=== PATIENT | female | born 1945 | race Two or more races ===

== ENCOUNTER 2023-11-18 09:21 | Inpatient (IN) | payer MEDICARE, OTHER ==
[~2023-11-18] VITALS: Ht 157.5 cm; Wt 82.2 kg
[2023-11-18 11:08] LABS: Urine Bacteria MOD /hpf (None Seen); Urine Blood Negative /uL (Negative); Urine Clarity Turbid (Clear); Urine Color Light-Yellow (Yellow); Urine Protein, UAD TRACE (Negative); Urine Specific Gravity 1.014 (1.001-1.035); Urine Urobilinogen Normal (Negative); Urine WBC 4 /hpf (0 - 5); Urine pH 5.5 (5.0-9.0)
[2023-11-18 11:29] LABS: Basophils # (auto) 0 10 ^3/uL (0-0.2); Basophils % (auto) 0.3 % (0.0-2.0); Eosinophils # (auto) 0.1 10 ^3/uL (0-0.8); Eosinophils % (auto) 1.3 % (0.0-7.0); Hematocrit 38.7 % (36.0-46.0); Hemoglobin 12.6 g/dL (12.2-16.2); Lymphocytes # (auto) 0.5 10 ^3/uL (0.4-5.4); Lymphocytes % (auto) 4.3 % (10.0-50.0); Mean Corpuscular Hemoglobin 31.5 pg (28.0-32.0); Mean Corpuscular Hgb Conc. 32.6 g/dL (32.0-36.0); Mean Corpuscular Volume 96.6 fL (80.0-100.0); Monocytes # (auto) 0.5 10 ^3/uL (0-1.3); Monocytes % (auto) 4.2 % (0.0-12.0); Neutrophils # (auto) 9.9 10 ^3/uL (1.6-8.6); Neutrophils % (auto) 89.9 % (37.0-80.0); Red Cell Distribution Width 14.8 % (11.8-14.3)
[2023-11-18 12:00] LABS: Alanine Aminotransferase 19 U/L (7-40); Albumin 4.3 g/dL (3.2-4.8); Alkaline Phosphatase 61 U/L (46-116); Anion Gap 6 (5-15); Aspartate Aminotransferase 21 U/L (13-40); BUN/Creatinine Ratio 14.9 (10.0-20.0); Blood Urea Nitrogen 18 mg/dL (9-23); Calcium 9.3 mg/dL (8.5-10.1); Carbon Dioxide 25 mmol/L (20-30); Chloride 110 mmol/L (98-107); Glucose 105 mg/dL (74-106); Potassium 3.7 mmol/L (3.5-5.1); Sodium 141 mmol/L (136-145)
[2023-11-18 12:01] LABS: Bilirubin, Total 0.6 mg/dL (0.2-1.0); Total Protein 6.9 g/dL (5.7-8.2)
[2023-11-18] MEDS: cefTRIAXone 1GM/50ML D5W 50 ML IV ONE (12:32)
[2023-11-18] MEDS: ONDANSETRON HCL 4 MG/2 ML VIAL IV PRN (13:12)
[2023-11-18] MEDS: ONDANSETRON HCL 4 MG/2 ML VIAL ONE (13:13)
[2023-11-18 14:45] VITALS: PULSE 77; RESP 12; O2SAT 97
[2023-11-18] MEDS ORDERED: DOCUSATE SOD 100 MG CAP PO PRN (15:30)
[2023-11-18] MEDS ORDERED: NITROGLYCERIN 0.4 MG SL TAB SL PRN (15:30)
[2023-11-18] MEDS ORDERED: MORPHINE SULFATE INJ 2 MG/ml SYRG IV PRN ×2 (15:30)
[2023-11-18] MEDS ORDERED: ONDANSETRON HCL 4 MG/2 ML VIAL IV PRN (15:30)
[2023-11-18] MEDS ORDERED: HYDROcodone-ACET 5/325MG TAB PO PRN (15:30)
[2023-11-18] MEDS ORDERED: ACETAMINOPHEN 325 MG TAB PO PRN (15:30)
[2023-11-18] MEDS ORDERED: cefTRIAXone 1GM/50ML D5W 50 ML IV ONE (15:45)
[2023-11-18] MEDS: metroNIDAZOLE 500MG/100ML 100 ML IV SCH (16:15)
[2023-11-18] MEDS: SODIUM CHLORIDE 0.9% 1,000 ML IV SCH (16:15)
[2023-11-18] MEDS: PANTOPRAZOLE 40 MG/10 ML VIAL INJ IV ONE (16:15)
[2023-11-18] MEDS ORDERED: BUME2TAB5 PO (19:08)
[2023-11-18] MEDS ORDERED: METO25TA93 PO (19:08)
[2023-11-18] MEDS ORDERED: LEVO100T8 PO (19:08)
[2023-11-18] MEDS ORDERED: METH2.5T62 PO (19:08)
[2023-11-18] MEDS ORDERED: METHOTREXATE 2.5 MG TAB PO SCH (19:15)
[2023-11-18] MEDS ORDERED: FOLI-119 PO (22:53)
[2023-11-18] MEDS ORDERED: CHOL20007 PO (22:53)
[2023-11-18] MEDS ORDERED: ALPR0.254 PO (22:53)
[2023-11-18] MEDS: metroNIDAZOLE 500 MG TAB PO SCH (23:09)
[2023-11-18 23:13] VITALS: BP 106/61; PULSE 85; RESP 16; TEMP 98.2; O2SAT 99
[2023-11-19] VITALS (8 sets, daily range): BP systolic 97–114; BP diastolic 51–64; PULSE 66–85; RESP 16–19; TEMP 97.5–98.3; O2SAT 91–96
[2023-11-19 07:13] LABS: Basophils # (auto) 0 10 ^3/uL (0-0.2); Basophils % (auto) 0.6 % (0.0-2.0); Eosinophils # (auto) 0.1 10 ^3/uL (0-0.8); Eosinophils % (auto) 1.5 % (0.0-7.0); Hematocrit 33.9 % (36.0-46.0); Hemoglobin 11.2 g/dL (12.2-16.2); Lymphocytes # (auto) 0.6 10 ^3/uL (0.4-5.4); Mean Corpuscular Hemoglobin 31.9 pg (28.0-32.0); Mean Corpuscular Hgb Conc. 33.1 g/dL (32.0-36.0); Mean Corpuscular Volume 96.4 fL (80.0-100.0); Monocytes # (auto) 0.5 10 ^3/uL (0-1.3); Monocytes % (auto) 9.1 % (0.0-12.0); Neutrophils # (auto) 4.1 10 ^3/uL (1.6-8.6); Neutrophils % (auto) 76.8 % (37.0-80.0); Nucleated Red Blood Cells % 0.1 %; Red Blood Cells 3.51 10^6/uL (4.0-5.20); Red Cell Distribution Width 15.1 % (11.8-14.3); White Blood Cell 5.3 10^3/uL (4.4-10.8)
[2023-11-19 07:39] LABS: Alanine Aminotransferase 14 U/L (7-40); Albumin 3.5 g/dL (3.2-4.8); Alkaline Phosphatase 49 U/L (46-116); Anion Gap 6 (5-15); Aspartate Aminotransferase 18 U/L (13-40); BUN/Creatinine Ratio 11.8 (10.0-20.0); Bilirubin, Total 0.4 mg/dL (0.2-1.0); Blood Urea Nitrogen 12 mg/dL (9-23); Calcium 8.1 mg/dL (8.5-10.1); Carbon Dioxide 24 mmol/L (20-30); Chloride 114 mmol/L (98-107); Glucose 93 mg/dL (74-106); Potassium 3.1 mmol/L (3.5-5.1); Sodium 144 mmol/L (136-145); Total Protein 5.5 g/dL (5.7-8.2)
[2023-11-19] MEDS: PANTOPRAZOLE 40 MG/10 ML VIAL INJ IV SCH (08:46)
[2023-11-19] MEDS: LEVOTHYROXINE SODIUM 100 MCG TAB PO SCH (08:46)
[2023-11-19] MEDS: cefTRIAXone 1GM/50ML D5W 50 ML IV SCH (08:47)
[2023-11-19] MEDS: BUMETANIDE 1 MG TAB PO SCH (10:00)
[2023-11-19] MEDS: METOPROLOL SUCCINATE XL 50 MG TAB PO SCH (10:05)
[2023-11-19] MEDS: POTASSIUM CHL 20 Meq TABLET PO ONE (11:22)
[2023-11-20] VITALS (7 sets, daily range): BP systolic 103–123; BP diastolic 56–65; PULSE 60–73; RESP 16–18; TEMP 36.4; O2SAT 92–98
[2023-11-20 06:50] LABS: Chloride 117 mmol/L (98-107); Potassium 3.6 mmol/L (3.5-5.1); Sodium 146 mmol/L (136-145)
[2023-11-20 06:51] LABS: Anion Gap 8 (5-15); Calcium 8.1 mg/dL (8.7-10.4); Carbon Dioxide 21 mmol/L (20-30)
[2023-11-20 06:56] LABS: BUN/Creatinine Ratio 8.8 (10.0-20.0); Basophils # (auto) 0 10 ^3/uL (0-0.2); Basophils % (auto) 0.5 % (0.0-2.0); Blood Urea Nitrogen 8 mg/dL (9-23); Eosinophils # (auto) 0.2 10 ^3/uL (0-0.8); Eosinophils % (auto) 3.4 % (0.0-7.0); Glucose 82 mg/dL (74-106); Hematocrit 33.2 % (36.0-46.0); Hemoglobin 10.8 g/dL (12.2-16.2); Lymphocytes # (auto) 1.1 10 ^3/uL (0.4-5.4); Lymphocytes % (auto) 20.7 % (10.0-50.0); Mean Corpuscular Hemoglobin 32.3 pg (28.0-32.0); Mean Corpuscular Hgb Conc. 32.4 g/dL (32.0-36.0); Mean Corpuscular Volume 99.7 fL (80.0-100.0); Monocytes # (auto) 0.7 10 ^3/uL (0-1.3); Monocytes % (auto) 11.9 % (0.0-12.0); Neutrophils # (auto) 3.5 10 ^3/uL (1.6-8.6); Neutrophils % (auto) 63.5 % (37.0-80.0); Red Blood Cells 3.33 10^6/uL (4.0-5.20); Red Cell Distribution Width 15.7 % (11.8-14.3); White Blood Cell 5.5 10^3/uL (4.4-10.8)
[2023-11-20] MEDS: metroNIDAZOLE 500 MG TAB PO ONE (11:00)
[2023-11-20] MEDS: CIPROFLOXACIN HCL 500 MG TAB PO ONE (11:00)
[2023-11-20] MEDS ORDERED: GADOTERATE MEG 10 MMOL/20ml INJ (0.5MMOL/ml) IV ONE (12:37)
[2023-11-20] MEDS: metroNIDAZOLE 500 MG TAB PO SCH (17:09)
[2023-11-20] MEDS ORDERED: CIP500T PO (17:24)
[2023-11-20] MEDS ORDERED: CIPROFLOXACIN HCL 500 MG TAB PO SCH (22:00)
== END 2023-11-20 18:35 | disposition home or self-care (01) | DRG 391 ==
LOC: ER 09:21 → OVERFLOW 15:27 → CENTRAL 21:57
PROVIDERS: ADMIT Internal Medicine; ATTEND Internal Medicine
DX: K52.9 Noninfective gastroenteritis and colitis, unspecified (principal); N17.0 Acute kidney failure with tubular necrosis; N39.0 Urinary tract infection, site not specified; E86.0 Dehydration; M06.9 Rheumatoid arthritis, unspecified; I10 Essential (primary) hypertension; E03.9 Hypothyroidism, unspecified; K44.9 Diaphragmatic hernia without obstruction or gangrene; N28.89 Other specified disorders of kidney and ureter; Z66 Do not resuscitate; N28.1 Cyst of kidney, acquired; Z90.49 Acquired absence of other specified parts of digestive tract
CPT/HCPCS: 36415; 74176; 74183; 76775; 80048; 80053; 81001; 82270; 85025; 85048; 87045; 87493; 93306; 96365; 96375; C9113; G0378; J2405; J3490

== ENCOUNTER 2024-08-27 11:47 | Inpatient (IN) | payer MEDICARE, OTHER ==
[~2024-08-27] VITALS: Ht 157.5 cm; Wt 94.1 kg
[~2024-08-27 11:47] MED LIST: ALPR0.254 PO; BUME2TAB5 PO; CHOL20007 PO; CIP500T PO; FOLI-119 PO; LEVO100T8 PO; METH2.5T62 PO; METO25TA93 PO
--- NOTE | 2024-08-27 12:16 | ED.PDOC ---
General HPI Comments Parttida HPI: Poor Historian. HPI: 79 year old female accompanied by daughter presents to the ED with chief complaint of suprapubic pain. Daughter reports that the patient had a bladder operation done by Dr. Christopher in [facility] 2 days ago. Daughter relays that the patient has been experiencing suprapubic pain since the surgery and even after she had followed up with Dr. Christopher yesterday, noting that he aid everything was normal at the time. Daughter states that the patient was prescribed Arnett and Cipro after her surgery and currently has vaginal packing in place. Patient notes that her pain feels like there is "air" in her suprapubic region. Patient denies any dysuria, hematuria, fever, chills, or N/V/D. Vitals: Temp: BP: HR: RR: spO2: Past Medical History: HTN, Arthritis, Hypothyroidism Past Surgical History: Cholecystectomy, Sling operation with vaginal packing in place after surgery. Social History: Denies cigarette, ETOH, or drug use. Allergies: NKDA REVIEW OF SYSTEMS: CONSTITUTIONAL: Denies acute: fever, diaphoresis, chills, HEAD: Denies acute: headache, photophobia Eyes: Denies acute: Double vision, vision loss, eye pain, eye discharge. EARS: Denies acute: tinnitus, hearing loss, ear discharge, ear pain, THROAT: Denies acute: sore throat, swelling, difficulty swallowing , pain with swallowing, change in voice. NECK: Denies acute: neck pain, neck swelling, stiff neck. HEART: Denies acute : chest pain, palpitations, LUNGS: Denies acute: SOB, wheezing, cough, hemoptysis ABDOMEN: Denies acute: Nausea, Vomiting, diarrhea, melena , hematemesis, hematochezia SKIN: Denies acute: rash, redness, lesions, itchiness. EXTREMITIES: Denies acute: calf pain, numbness, tingling, weakness, denies pain in extremity. Denies acute: Low back pain. Neuro: Denies acute: focal neurological deficit, motor or sensory focal neurological deficit, tremors, seizure like activity, confusion, dizziness, change in mental status, loss of bowel or bladder function, cauda equina like symptoms. : Denies acute: dysuria, hematuria, flank pain, increase in urinary frequency. PSYCH: Denies acute: hallucination, suicidal ideation, homicidal ideation. FEMALE: Denies acute: abnormal vaginal bleeding, foul odor, unusual discharge. PHYSICAL EXAM: General: no acute distress, awake and alert. Head: normocephalic, atraumatic. Neck: supple, trachea is midline, no swelling. Throat: Normal phonation. Eyes:, no erythema, no purulent discharge, no proptosis, no icterus. Heart: regular rate, regular rhythm, no significant murmur appreciated. Lungs: no apparent respiratory distress, Able to speak in full sentences. No wheezing, no rhonchi, no crackles. No stridors Clear to auscultation bilaterally. Abdomen: Suprapubic and lower abdominal tender to palpation, non distended, soft, no guarding, no rebound, + bowel sounds. Obese Neuro: Awake, Alert, oriented to name, self, situation, follows commands GCS=15. Speech is normal. Skin: no petechia, no purpura, no cyanosis, non-pale, not jaundice. Lower extremities: --1/4 bilateral- Pitting edema no deformity, no focal swelling, no calf TTP. Makes eye contact. moves all four extremities. Face: no apparent facial droop. ED COURSE: Chief Complaint: Abdominal Pain Time Seen by MD: 12:13 Primary Care Provider: HINOJOSA Reviewed notes: Nurses Notes, Medications, Allergies Allergies: Coded Allergies: NO KNOWN ALLERGIES (Unverified , 11/18/23) Home Meds Active Scripts Ciprofloxacin Hydrochloride (Ciprofloxacin HCl) 500 Mg Tab, 500 MG PO Q12HR for 5 Days, #10 TAB Prov:SANDHYAJUAN MANUELMARITZABARBARA RESIDENT 11/20/23 Reported Medications Cholecalciferol (VITAMIN D3) 2,000 Unit Tab, 1 TAB PO DAILY, #30 TAB 5 Refills 11/18/23 Alprazolam (Alprazolam) 0.25 Mg Tab, 1 TAB PO BID, #60 TAB 11/18/23 Folic Acid (Folic Acid) 1 Mg Tab, 100 MCG PO DAILY for 30 Days, MG 11/18/23 Bumetanide (Bumetanide) 2 Mg Tab, 1 TAB PO DAILY, #30 TAB 5 Refills 11/18/23 Levothyroxine Sodium (Levothyroxine Sodium) 100 Mcg Tab, 100 MCG PO DAILY, TAB 11/18/23 Methotrexate (Methotrexate Sodium) 2.5 Mg Tab, 2.5 MG PO QWEEKLY, TAB 11/18/23 Metoprolol Succinate (Metoprolol Succinate Er) 25 Mg Tab, 0.5 TAB PO DAILY, #30 TAB 5 Refills 11/18/23 Information Source: Patient, Relative (Daughter) Mode of Arrival: Wheelchair Was a procedure done? Was a procedure done?: No Differential Diagnosis Kidney stone (Female): N/A Urinary Problem (Female): Other (DDX include Diverticulitis, colitis, gastroenteritis, acute abdomen, SBO, enteritis, constipation, volvulus, appendicitis, Gallbladder disease, choledocolithiasis, ascending cholangitis, pancreatitis, intraAbdominal mass/neoplasm, hepatitis, UTI, pylonephritis, kidney stone, aneurysm, dissection, Inflammatory bowel disease, gastroparesis, ischemic bowel, ovarian torsion, ovarian cyst/mass, tubo-ovarian abscess, , ectopic , PID, STD.) X-Ray, Labs, Meds, VS Vital Signs Date Time Temp Pulse Resp B/P (MAP) Pulse Ox O2 Delivery O2 Flow Rate FiO2 08/27/24 14:14 98.1 105 16 127/79 (95) 97 98.1 08/27/24 13:17 140/58 08/27/24 13:15 96 Room Air* 0 21 08/27/24 13:03 98.0 99 17 140/58 (85) 96 98.0 08/27/24 13:03 99 17 96 Room Air 08/27/24 12:01 98.0 98 17 119/56 (77) 94 98.0 Lab Test 08/27/24 13:50 08/27/24 12:27 08/27/24 12:00 Range/Units Troponin I High Sensitivity 5 5 </=34 ng/L White Blood Count 14.6 H 4.4-10.8 10^3/uL Red Blood Count 3.11 L 4.0-5.20 10^6/uL Hemoglobin 9.8 L 12.2-16.2 g/dL Hematocrit 29.4 L 36.0-46.0 % Mean Corpuscular Volume 94.4 80.0-100.0 fL Mean Corpuscular Hemoglobin 31.7 28.0-32.0 pg Mean Corpuscular Hemoglobin Concent 33.5 32.0-36.0 g/dL Red Cell Distribution Width 15.3 H 11.8-14.3 % Platelet Count 229 140-450 10^3/uL Mean Platelet Volume 7.7 6.9-10.8 fL Neutrophils (%) (Auto) 85.7 H 37.0-80.0 % Lymphocytes (%) (Auto) 8.8 L 10.0-50.0 % Monocytes (%) (Auto) 4.0 0.0-12.0 % Eosinophils (%) (Auto) 1.1 0.0-7.0 % Basophils (%) (Auto) 0.4 0.0-2.0 % Neutrophils # (Auto) 12.5 H 1.6-8.6 10 ^3/uL Lymphocytes # (Auto) 1.3 0.4-5.4 10 ^3/uL Monocytes # (Auto) 0.6 0-1.3 10 ^3/uL Eosinophils # (Auto) 0.2 0-0.8 10 ^3/uL Basophils # (Auto) 0.1 0-0.2 10 ^3/uL Nucleated Red Blood Cells 0.0 % Sodium Level 140 136-145 mmol/L Potassium Level 4.0 3.5-5.1 mmol/L Chloride Level 107 98-107 mmol/L Carbon Dioxide Level 25 20-31 mmol/L Anion Gap 8 5-15 Blood Urea Nitrogen 30 H 9-23 mg/dL Creatinine 1.82 H 0.550-1.02 mg/dL Glomerular Filtration Rate Calc 28 >90 mL/min BUN/Creatinine Ratio 16.5 10.0-20.0 Serum Glucose 127 H 74-106 mg/dL Lactic Acid Level 1.1 0.4-2.0 mmol/L Calcium Level 9.3 8.7-10.4 mg/dL Total Bilirubin 0.6 0.2-1.0 mg/dL Aspartate Amino Transferase (AST) 18 13-40 U/L Alanine Aminotransferase (ALT) 20 7-40 U/L Alkaline Phosphatase 65 46-116 U/L B-Type Natriuretic Peptide 265.53 0-100 pg/mL Total Protein 6.2 5.7-8.2 g/dL Albumin 4.1 3.2-4.8 g/dL Lipase 43 12-53 U/L Urine Color Light-brown Yellow Urine Clarity Ex.turbid Clear Urine pH 5.5 5.0-9.0 Urine Specific [place] 1.012 1.001-1.035 Urine Protein 1+ H Negative Urine Ketones Negative Negative Urine Blood 3+ H Negative /uL Urine Nitrite 2+ H Negative Urine Bilirubin Negative Negative Urine Urobilinogen Normal Negative mg/dL Urine Leukocyte Esterase 3+ Negative /uL Urine RBC 411 0 - 4 /hpf Urine WBC Clumps Present None Seen /hpf Urine Microscopic WBC 1566 H 0-5 /HPF Urine Squamous Epithelial Cells Few <5 /hpf Urine Bacteria Few H None Seen /hpf Urine Creatinine Pending Urine Sodium Pending Urine Glucose Normal Normal mg/dL Current Medications Medications (Trade) Dose Ordered Sig/Sonia Route Start Time Stop Time Status Last Admin Sodium Chloride 500 ml @ 500 mls/hr Q1H ONCE IV 08/27/24 12:15 08/27/24 13:14 DC 08/27/24 13:05 Fentanyl Citrate 50 mcg ONCE ONCE IV 08/27/24 13:15 08/27/24 13:16 DC 08/27/24 13:17 Piperacillin Sod/ Tazobactam Sod 100 ml @ 100 mls/hr ONCE ONCE IV 08/27/24 13:30 08/27/24 14:29 DC 08/27/24 14:11 [place] [id number] Ph: [phone] DIAGNOSTIC IMAGING Diagnostic Imaging Report : [id number] Signed PATIENT: RACHEL MURPHYCCT: [id number] UNIT: [id number] : 1945 LOC: ER ROOM / BED: / AGE / SEX: 79 / F ADM STATUS: REG ER SERVICE 1229 ORDERING PHYSICIAN: JOSE LUIS EDWARDS DO PROCEDURE(s): ABPL - CT AB PEL WO CON-NO ORAL OR IV REASON: ABD PAIN ORDER NUMBER(s): [id number], ACCESSION NUMBER(s): [id number] Exam: CT CT AB PEL WO CON-NO ORAL OR IV History: ABD PAIN Comparison Study: CT CT AB PEL WO CON-NO ORAL OR IV on DOS: 11/18/23 TECHNIQUE: Multidetector CT of the abdomen and pelvis was performed from lung bases to pubic symphysis. Imaging was performed without IV contrast. Axial, coronal, and sagittal multiplanar reformats were obtained from the axial data set by the technologist. RADIATION DOSE: DLP 958.65 mGy.cm; CTDI vol 18.94 mGy. Findings: Lungs: The lung bases are clear. Heart: Cardiomegaly. No pericardial effusion. Liver: Unremarkable. Gallbladder: Cholecystectomy versus contracted gallbladder. Spleen: Unremarkable Pancreas: Unremarkable Adrenals: Unremarkable Kidneys: Mildly hyperdense lesions in the left kidney. GI tract: Small to moderate hiatal hernia. : Calcification versus urethral stent. Vasculature: Mild aortoiliac atherosclerosis. Lymphadenopathy: Absent Peritoneum: No ascites Musculoskeletal: Mild multilevel degenerative changes of the thoracolumbar spine. Grade 1 anterolisthesis of L4 on L5. Soft tissues: Unremarkable Impression: 1. No acute abdominopelvic abnormalities. 2. [id number] hiatal hernia. 3. Urethral calcification versus stent. 4. Cardiomegaly. ATED BY: KRISTINE MYERS DO DICTATED DATE/TIME: 08/27/24 1317 SIGNED BY: KRISTINE MYERS DO SIGNED DATE/TIME: 08/27/24 1317 CC: Time of 1ST Reevaluation: 13:13 Reevaluation 1ST: Unchanged Patient Education/Counseling: Diagnosis, Treatment Family Education/Counseling: Diagnosis, Treatment Comments Patient presented with the above HPI.---abdominal pain---workup was initiated. patient was found with the above mentioned diagnosis. the following medications were ordered: please refer to order lists of meds and tests obtained by myself Dr. Edwards. Patient ED course and VS have been stabilized. Patient has been reassessed in the ED and remained in a stable condition. Pertinent incidental findings were discussed with the patient and/or family. Patient/family voices understanding and is agreeable with plan. Patient has been observed in the ED adequate length of time to insure improvement/stability. Escalation of care considered: Consideration of escalation to observation or admission Patient was ADMITTED to the medicine team for further evaluation and treatment of their presentation. Patient has leukocytosis and UTI and on Arnett at home and requires pain management. Antibiotics initiated. All the reports of any imaging studies that were ordered by myself were reviewed by myself. Departure 1 Departure Time of Disposition: 13:56 Impression: Primary Impression: Postoperative pain Additional Impressions: Leukocytosis UTI (urinary tract infection) Acute renal insufficiency Disposition: ADMITTED INPATIENT Admit to: Tele Condition: Guarded Discharged With: Self Critical Care Note Critical Care Time?: No I personally scribed for JOSE LUIS EDWARDS DO ([email or web address]) on 08/27/24 at 12:16. Electronically submitted by Paul Cesar ([email or web address]). I personally scribed for JOSE LUIS EDWARDS DO ([email or web address]) on 08/27/24 at 13:26. Electronically submitted by Paul Cesar ([email or web address]). JOSE LUIS EDWARDS DO Aug 27, 2024 12:16
[2024-08-27 12:41] LABS: Basophils # (auto) 0.1 10 ^3/uL (0-0.2); Basophils % (auto) 0.4 % (0.0-2.0); Eosinophils # (auto) 0.2 10 ^3/uL (0-0.8); Eosinophils % (auto) 1.1 % (0.0-7.0); Hematocrit 29.4 % (36.0-46.0); Hemoglobin 9.8 g/dL (12.2-16.2); Lymphocytes # (auto) 1.3 10 ^3/uL (0.4-5.4); Lymphocytes % (auto) 8.8 % (10.0-50.0); Mean Corpuscular Hemoglobin 31.7 pg (28.0-32.0); Mean Corpuscular Hgb Conc. 33.5 g/dL (32.0-36.0); Mean Corpuscular Volume 94.4 fL (80.0-100.0); Monocytes # (auto) 0.6 10 ^3/uL (0-1.3); Neutrophils # (auto) 12.5 10 ^3/uL (1.6-8.6); Neutrophils % (auto) 85.7 % (37.0-80.0); Platelet Count (auto) 229 10^3/uL (140-450); Red Blood Cells 3.11 10^6/uL (4.0-5.20); Red Cell Distribution Width 15.3 % (11.8-14.3); White Blood Cell 14.6 10^3/uL (4.4-10.8)
[2024-08-27] MEDS: SODIUM CHLORIDE 0.9% 500 ML IV ONE (13:05)
[2024-08-27 13:06] LABS: Alanine Aminotransferase 20 U/L (7-40); Albumin 4.1 g/dL (3.2-4.8); Alkaline Phosphatase 65 U/L (46-116); Anion Gap 8 (5-15); Aspartate Aminotransferase 18 U/L (13-40); BUN/Creatinine Ratio 16.5 (10.0-20.0); Calcium 9.3 mg/dL (8.7-10.4); Carbon Dioxide 25 mmol/L (20-31); Chloride 107 mmol/L (98-107); Lipase 43 U/L (12-53); Sodium 140 mmol/L (136-145); Total Protein 6.2 g/dL (5.7-8.2)
[2024-08-27 13:07] LABS: Bilirubin, Total 0.6 mg/dL (0.2-1.0)
[2024-08-27 13:14] LABS: Blood Urea Nitrogen 30 mg/dL (9-23); Glucose 127 mg/dL (74-106)
[2024-08-27 13:15] VITALS: O2SAT 96
[2024-08-27] MEDS: fentaNYL CITRATE 100 MCG/2 ML VL IV ONE (13:17)
--- NOTE | 2024-08-27 13:19 | DVH ---
Exam: CT CT AB PEL WO CON-NO ORAL OR IV History: ABD PAIN Comparison Study: CT CT AB PEL WO CON-NO ORAL OR IV on DOS: 11/18/23 TECHNIQUE: Multidetector CT of the abdomen and pelvis was performed from lung bases to pubic symphysi s. Imaging was performed without IV contrast. Axial, coronal, and sagittal multiplanar reformats were obtained from the axial data set by the technologist. RADIATION DOSE: DLP 958.65 mGy.cm; CTDI vol 18.94 mGy. Findings: Lungs: The lung bases are clear. Heart: Cardiomegaly. No pericardial effusion. Liver: Unremarkable. Gallbladder: Cholecystectomy versus contracted gallbladder. Spleen: Unremarkable Pancreas: Unremarkable Adrenals: Unremarkable Kidneys: Mildly hyperdense lesions in the left kidney. GI tract: Small to moderate hiatal hernia. : Calcification versus urethral stent. Vasculature: Mild aortoiliac atherosclerosis. Lymphadenopathy: Absent Peritoneum: No ascites Musculoskeletal: Mild multilevel degenerative changes of the thoracolumbar spine. Grade 1 anterolisth esis of L4 on L5. Soft tissues: Unremarkable Impression: 1. No acute abdominopelvic abnormalities. 2. [id number] hiatal hernia. 3. Urethral calcification versus stent. 4. Cardiomegaly.
[2024-08-27 13:43] LABS: Urine Bacteria FEW /hpf (None Seen); Urine Blood 3+ /uL (Negative); Urine Clarity Ex.Turbid (Clear); Urine Color Light-Brown (Yellow); Urine Protein, UAD 1+ (Negative); Urine Specific Gravity 1.012 (1.001-1.035); Urine Squamous Epithelial Cell FEW /hpf (<5); Urine Urobilinogen Normal (Negative); Urine WBC 1566 /HPF (0-5); Urine WBC Clumps PRESENT /hpf (None Seen); Urine pH 5.5 (5.0-9.0)
[2024-08-27] MEDS: PIPERACILLIN-TAZOB 3.375GM 100 ML IV ONE (14:11)
--- NOTE | 2024-08-27 15:54 | DVHHP2 ---
Admitting Diagnosis: Suprapubic pain History of Present Illness HPI: 79 year old female accompanied by daughter presents to the ED with chief complaint of suprapubic pain. Daughter reports that the patient had a bladder operation done by Dr. Brower in [facility] 2 days ago. Daughter relays that the patient has been experiencing suprapubic pain since the surgery and even after she had followed up with Dr. Brower yesterday, noting that he aid everything was normal at the time. Daughter states that the patient was prescribed [place] and Cipro after her surgery and currently has vaginal packing in place. Patient notes that her pain feels like there is "air" in her suprapubic region. Patient denies any dysuria, hematuria, fever, chills, or N/V/D. Past Medical History: HTN, Arthritis, Hypothyroidism Past Surgical History: Cholecystectomy, Sling operation with vaginal packing in place after surgery. Social History: Denies cigarette, ETOH, or drug use. Allergies: NKDA REVIEW OF SYSTEMS: CONSTITUTIONAL: Denies acute: fever, diaphoresis, chills, HEAD: Denies acute: headache, photophobia Eyes: Denies acute: Double vision, vision loss, eye pain, eye discharge. EARS: Denies acute: tinnitus, hearing loss, ear discharge, ear pain, THROAT: Denies acute: sore throat, swelling, difficulty swallowing , pain with swallowing, change in voice. NECK: Denies acute: neck pain, neck swelling, stiff neck. HEART: Denies acute : chest pain, palpitations, LUNGS: Denies acute: SOB, wheezing, cough, hemoptysis ABDOMEN: Denies acute: Nausea, Vomiting, diarrhea, melena , hematemesis, hematochezia SKIN: Denies acute: rash, redness, lesions, itchiness. EXTREMITIES: Denies acute: calf pain, numbness, tingling, weakness, denies pain in extremity. Denies acute: Low back pain. Neuro: Denies acute: focal neurological deficit, motor or sensory focal neurological deficit, tremors, seizure like activity, confusion, dizziness, change in mental status, loss of bowel or bladder function, cauda equina like symptoms. : Denies acute: dysuria, hematuria, flank pain, increase in urinary frequency. PSYCH: Denies acute: hallucination, suicidal ideation, homicidal ideation. FEMALE: Denies acute: abnormal vaginal bleeding, foul odor, unusual discharge. Patient Family History: Diabetes mellitus G8 MOTHER G8 FATHER FH: thyroid disease High cholesterol G8 MOTHER G8 FATHER Hypertension G8 MOTHER G8 FATHER Allergies: Coded Allergies: NO KNOWN ALLERGIES (Unverified , 11/18/23) Home Meds Active Scripts Ciprofloxacin Hydrochloride (Ciprofloxacin HCl) 500 Mg Tab, 500 MG PO Q12HR for 5 Days, #10 TAB Prov:TYMARITZABARBARA RESIDENT 11/20/23 Reported Medications Cholecalciferol (VITAMIN D3) 2,000 Unit Tab, 1 TAB PO DAILY, #30 TAB 5 Refills 11/18/23 Alprazolam (Alprazolam) 0.25 Mg Tab, 1 TAB PO BID, #60 TAB 11/18/23 Folic Acid (Folic Acid) 1 Mg Tab, 100 MCG PO DAILY for 30 Days, MG 11/18/23 Bumetanide (Bumetanide) 2 Mg Tab, 1 TAB PO DAILY, #30 TAB 5 Refills 11/18/23 Levothyroxine Sodium (Levothyroxine Sodium) 100 Mcg Tab, 100 MCG PO DAILY, TAB 11/18/23 Methotrexate (Methotrexate Sodium) 2.5 Mg Tab, 2.5 MG PO QWEEKLY, TAB 11/18/23 Metoprolol Succinate (Metoprolol Succinate Er) 25 Mg Tab, 0.5 TAB PO DAILY, #30 TAB 5 Refills 11/18/23 Vital Signs Vital Signs Date Time Temp Pulse Resp B/P (MAP) Pulse Ox O2 Delivery O2 Flow Rate FiO2 08/27/24 14:14 98.1 105 16 127/79 (95) 97 98.1 08/27/24 13:15 Room Air* 0 21 Physical Exam Generally-79 years old woman, obese, sitting on chair. Mild distress HEENT-atraumatic normocephalic Heart-regular rate and rhythm Lungs clear to auscultate bilaterally Abdomen soft, tender suprapubic, nondistended Musculoskeletal-no edema cyanosis Neuro-AO x3, no focal deficits Results Labs Test 08/27/24 13:50 08/27/24 12:27 08/27/24 12:00 Range/Units Troponin I High Sensitivity 5 </=34 ng/L White Blood Count 14.6 H 4.4-10.8 10^3/uL Red Blood Count 3.11 L 4.0-5.20 10^6/uL Hemoglobin 9.8 L 12.2-16.2 g/dL Hematocrit 29.4 L 36.0-46.0 % Mean Corpuscular Volume 94.4 80.0-100.0 fL Mean Corpuscular Hemoglobin 31.7 28.0-32.0 pg Mean Corpuscular Hemoglobin Concent 33.5 32.0-36.0 g/dL Red Cell Distribution Width 15.3 H 11.8-14.3 % Platelet Count 229 140-450 10^3/uL Mean Platelet Volume 7.7 6.9-10.8 fL Neutrophils (%) (Auto) 85.7 H 37.0-80.0 % Lymphocytes (%) (Auto) 8.8 L 10.0-50.0 % Monocytes (%) (Auto) 4.0 0.0-12.0 % Eosinophils (%) (Auto) 1.1 0.0-7.0 % Basophils (%) (Auto) 0.4 0.0-2.0 % Neutrophils # (Auto) 12.5 H 1.6-8.6 10 ^3/uL Lymphocytes # (Auto) 1.3 0.4-5.4 10 ^3/uL Monocytes # (Auto) 0.6 0-1.3 10 ^3/uL Eosinophils # (Auto) 0.2 0-0.8 10 ^3/uL Basophils # (Auto) 0.1 0-0.2 10 ^3/uL Nucleated Red Blood Cells 0.0 % Sodium Level 140 136-145 mmol/L Potassium Level 4.0 3.5-5.1 mmol/L Chloride Level 107 98-107 mmol/L Carbon Dioxide Level 25 20-31 mmol/L Anion Gap 8 5-15 Blood Urea Nitrogen 30 H 9-23 mg/dL Creatinine 1.82 H 0.550-1.02 mg/dL Glomerular Filtration Rate Calc 28 >90 mL/min BUN/Creatinine Ratio 16.5 10.0-20.0 Serum Glucose 127 H 74-106 mg/dL Lactic Acid Level 1.1 0.4-2.0 mmol/L Calcium Level 9.3 8.7-10.4 mg/dL Total Bilirubin 0.6 0.2-1.0 mg/dL Aspartate Amino Transferase (AST) 18 13-40 U/L Alanine Aminotransferase (ALT) 20 7-40 U/L Alkaline Phosphatase 65 46-116 U/L B-Type Natriuretic Peptide 265.53 0-100 pg/mL Total Protein 6.2 5.7-8.2 g/dL Albumin 4.1 3.2-4.8 g/dL Lipase 43 12-53 U/L Urine Color Light-brown Yellow Urine Clarity Ex.turbid Clear Urine pH 5.5 5.0-9.0 Urine Specific [place] 1.012 1.001-1.035 Urine Protein 1+ H Negative Urine Ketones Negative Negative Urine Blood 3+ H Negative /uL Urine Nitrite 2+ H Negative Urine Bilirubin Negative Negative Urine Urobilinogen Normal Negative mg/dL Urine Leukocyte Esterase 3+ Negative /uL Urine RBC 411 0 - 4 /hpf Urine WBC Clumps Present None Seen /hpf Urine Microscopic WBC 1566 H 0-5 /HPF Urine Squamous Epithelial Cells Few <5 /hpf Urine Bacteria Few H None Seen /hpf Urine Glucose Normal Normal mg/dL Primary Diagnosis Acute urinary tract infection Postoperative pain RADHA on CKD versus CKD Plan CT abdomen and pelvis shows urethral calcification versus then no acute infection Positive UA Start ceftriaxone 1 g daily. Follow with the urine culture. Adjust antibiotic according to the ID and sensitivity Pain control Antiemetic Bowel regimen Urology consult for postoperative pain. Patient had a recent sling Nephrology consult for RADHA versus CKD Urine sodium, urine creatinine Full code Heparin for DVT prophylaxis GI prophylaxis Renal diet Plan discussed with: Patient Problems List: (1) Acute kidney injury superimposed on CKD (2) Postoperative pain Status: Acute (3) UTI (urinary tract infection) Status: Acute (4) Leukocytosis Status: Acute (5) Acute abdominal pain Status: Acute Date of Service: Aug 27, 2024 Billing Provider: AJ BROWER MD Common Visit Codes: [id number] INP/OBS CARE (HIGH) AJ BROWER MD Aug 27, 2024 15:54
[2024-08-27] MEDS ORDERED: METHOTREXATE 2.5 MG TAB PO SCH (16:15)
[2024-08-27] MEDS ORDERED: ACETAMINOPHEN 325 MG TAB PO PRN (18:00)
[2024-08-27] MEDS ORDERED: DOCUSATE SOD 100 MG CAP PO PRN (18:00)
[2024-08-27] MEDS ORDERED: HYDROmorphone HCL 2 MG/ML VL/or syr IV PRN (18:00)
[2024-08-27] MEDS: ONDANSETRON HCL 4 MG/2 ML VIAL IV PRN (20:41)
[2024-08-27] MEDS: cefTRIAXone 1GM/50ML D5W 50 ML IV SCH (20:41)
[2024-08-27] MEDS: MORPHINE SULFATE INJ 2 MG/ml SYRG IV PRN (20:41)
[2024-08-27 20:56] VITALS: RESP 22; O2SAT 96
[2024-08-27] MEDS: SODIUM CHLOR 0.9% PF (SALINE LOCK) 10ML VIAL/SYR IV SCH (22:00)
[2024-08-27] MEDS: ALPRAZolam 0.25 MG TAB PO SCH (22:00)
[2024-08-27 22:25] VITALS: BP 134/67; PULSE 105; RESP 18; TEMP 99; O2SAT 98
[2024-08-27 22:27] VITALS: O2SAT 95
[2024-08-27 22:30] VITALS: BP 134/67; PULSE 105; RESP 18; TEMP 99; O2SAT 96
[2024-08-27] MEDS: LACTATED RINGER'S 1,000 ML IV ONE (22:54)
[2024-08-28 01:00] VITALS: BP 123/62; PULSE 95; RESP 18; TEMP 98.3; O2SAT 95
[2024-08-28] MEDS: HYDROcodone-ACET 5/325MG TAB PO PRN (05:14)
[2024-08-28 05:25] VITALS: BP 121/63; PULSE 89; RESP 18; TEMP 98; O2SAT 98
[2024-08-28] MEDS: LEVOTHYROXINE SODIUM 100 MCG TAB PO SCH (06:43)
[2024-08-28 07:10] LABS: Eosinophils # (auto) 0.1 10 ^3/uL (0-0.8); Hemoglobin 8.4 g/dL (12.2-16.2); Monocytes # (auto) 0.7 10 ^3/uL (0-1.3); Neutrophils # (auto) 11.3 10 ^3/uL (1.6-8.6); Neutrophils % (auto) 85.7 % (37.0-80.0); Red Blood Cells 2.62 10^6/uL (4.0-5.20); White Blood Cell 13.2 10^3/uL (4.4-10.8)
[2024-08-28 07:13] LABS: Basophils # (auto) 0.1 10 ^3/uL (0-0.2); Basophils % (auto) 0.4 % (0.0-2.0); Eosinophils % (auto) 0.6 % (0.0-7.0); Hematocrit 24.6 % (36.0-46.0); Lymphocytes % (auto) 7.9 % (10.0-50.0); Mean Corpuscular Hemoglobin 31.9 pg (28.0-32.0); Mean Corpuscular Volume 93.9 fL (80.0-100.0); Monocytes % (auto) 5.4 % (0.0-12.0); Platelet Count (auto) 195 10^3/uL (140-450); Red Cell Distribution Width 15.4 % (11.8-14.3)
[2024-08-28 07:20] LABS: Alanine Aminotransferase 18 U/L (7-40); Alkaline Phosphatase 64 U/L (46-116); Anion Gap 8 (5-15); Aspartate Aminotransferase 19 U/L (13-40); BUN/Creatinine Ratio 11.2 (10.0-20.0); Bilirubin, Total 0.5 mg/dL (0.2-1.0); Carbon Dioxide 24 mmol/L (20-31); Chloride 106 mmol/L (98-107); Potassium 4.5 mmol/L (3.5-5.1); Sodium 138 mmol/L (136-145)
[2024-08-28 07:23] LABS: Blood Urea Nitrogen 33 mg/dL (9-23); Calcium 8.7 mg/dL (8.7-10.4); Glucose 109 mg/dL (74-106); Total Protein 5.5 g/dL (5.7-8.2)
[2024-08-28 07:24] LABS: Albumin 3.5 g/dL (3.2-4.8)
[2024-08-28 09:00] VITALS: BP 109/49; PULSE 73; RESP 20; TEMP 99.1; O2SAT 96
[2024-08-28] MEDS: BUMETANIDE 1 MG TAB PO SCH (09:41)
[2024-08-28] MEDS: METOPROLOL SUCCINATE XL 50 MG TAB PO SCH (09:41)
[2024-08-28] MEDS: CHOLECALCIFEROL (VITD3) 1,000UNIT=25mCg TAB PO SCH (09:42)
--- NOTE | 2024-08-28 11:10 | DVHINCON2 ---
Date of service: Aug 28, [address] Christopher Reason for Consultation Acute kidney injury History of Present Illness Mrs. Robert is a 79-year-old female with presentation hospital for suprapubic discomfort. Patient's daughter was at the bedside and provided most of the history. She underwent urologic procedure several days prior to current evaluation. Denies recent fevers or chills as outpatient. Denies gross hematuria. Serum creatinine is up trending at that is the reason for this consultation. Past Medical History Hypertension Arthritis Hypothyroidism Past Surgical History Cholecystectomy Recent bladder sling procedure Allergies: Coded Allergies: NO KNOWN ALLERGIES (Unverified , 11/18/23) Home Meds Active Scripts Ciprofloxacin Hydrochloride (Ciprofloxacin HCl) 500 Mg Tab, 500 MG PO Q12HR for 5 Days, #10 TAB Prov:BARBARA BUSTOS RESIDENT 11/20/23 Reported Medications Cholecalciferol (VITAMIN D3) 2,000 Unit Tab, 1 TAB PO DAILY, #30 TAB 5 Refills 11/18/23 Folic Acid (Folic Acid) 1 Mg Tab, 100 MCG PO DAILY for 30 Days, MG 11/18/23 Bumetanide (Bumetanide) 2 Mg Tab, 1 TAB PO DAILY, #30 TAB 5 Refills 11/18/23 Levothyroxine Sodium (Levothyroxine Sodium) 100 Mcg Tab, 100 MCG PO DAILY, TAB 11/18/23 Methotrexate (Methotrexate Sodium) 2.5 Mg Tab, 2.5 MG PO QWEEKLY, TAB 11/18/23 Metoprolol Succinate (Metoprolol Succinate Er) 25 Mg Tab, 0.5 TAB PO DAILY, #30 TAB 5 Refills 11/18/23 Discontinued Reported Medications Alprazolam (Alprazolam) 0.25 Mg Tab, 1 TAB PO BID, #60 TAB 11/18/23 Current Medications Current Medications Medications (Trade) Dose Ordered Sig/Sonia Route PRN Reason Start Time Stop Time Status Last Admin Ceftriaxone Sodium 50 ml @ 100 mls/hr DAILY IV 08/27/24 16:15 08/28/24 09:40 Alprazolam (Xanax Tablet) 0.25 mg BID PO 08/27/24 22:00 Levothyroxine Sodium (Synthroid Tablet) 100 mcg DAILY@0600 PO 08/28/24 06:00 08/28/24 06:43 Methotrexate (Methotrexate) 2.5 mg QWEEKLY PO 08/27/24 16:15 Bumetanide (Bumex Tablet) 2 mg DAILY PO 08/28/24 10:00 08/28/24 09:41 Cholecalciferol (Vitamin D3 Tablet) 2,000 unit DAILY PO 08/28/24 10:00 08/28/24 09:42 Patient Own Medication 100 mcg DAILY PO 08/28/24 10:00 Metoprolol Succinate (Toprol Xl) 25 mg DAILY PO 08/28/24 10:00 08/28/24 09:41 Sodium Chloride (Saline Lock Ns) 10 ml Q8HR IV 08/27/24 22:00 08/28/24 06:44 Docusate Sodium (Colace Capsule) 100 mg BIDPRN PRN PO FOR CONSTIPATION 08/27/24 18:00 Acetaminophen (Tylenol Tablet) 650 mg Q6HP PRN PO PAIN SCALE 1-3 OR TEMP>100.4 08/27/24 18:00 Acetaminophen/ Hydrocodone Bitart ([place] 5/325MG Tab) 1 tab Q4HP PRN PO MODERATE PAIN (4-6 PAIN SCALE) 08/27/24 18:00 08/28/24 09:43 Hydromorphone HCl (Dilaudid Injection) 0.5 mg Q4HP PRN IV SEVERE PAIN (7-10 PAIN SCALE) 08/27/24 18:00 08/27/24 20:11 DC Ondansetron HCl (Zofran) 4 mg Q4HP PRN IV NAUSEA / VOMITING 08/27/24 18:00 08/27/24 20:41 Morphine Sulfate 2 mg Q4HPRN PRN IV SEVERE PAIN (7-10 PAIN SCALE) 08/27/24 20:15 08/27/24 20:41 Family History: Diabetes mellitus G8 MOTHER G8 FATHER FH: thyroid disease High cholesterol G8 MOTHER G8 FATHER Hypertension G8 MOTHER G8 FATHER Review of Systems Limited as as per history of present illness otherwise all systems reviewed and are noncontributory H&P Exam Vital Signs/I&O Vital Sign Date Time Temp Pulse Resp B/P (MAP) Pulse Ox O2 Delivery O2 Flow Rate FiO2 08/28/24 09:41 73 109/49 08/28/24 09:00 99.1 20 96 99.1 08/28/24 08:00 Room Air* 0 21 Intake and Output0 08/27/24 08/28/24 19:00 07:00 Intake Total 600 ml 350 ml Output Total 200 ml Balance 600 ml 150 ml Intake Oral 300 ml IV Total 600 ml 50 ml Output Urine Total 200 ml Physical Exam Gen: nad, elderly heent: nc/at, mmm lungs: cta anteriorly cvs: no rub abd: Mild Tenderness in the suprapubic region ext: no edema skin: no rash neuro: alert and oriented Labs/Diagnostic Data Labs/Diagnostic Data Laboratory Tests Test 08/28/24 06:35 08/27/24 13:50 08/27/24 12:27 08/27/24 12:00 Range/Units White Blood Count 13.2 H 14.6 H 4.4-10.8 10^3/uL Red Blood Count 2.62 L 3.11 L 4.0-5.20 10^6/uL Hemoglobin 8.4 L 9.8 L 12.2-16.2 g/dL Hematocrit 24.6 #L 29.4 L 36.0-46.0 % Mean Corpuscular Volume 93.9 94.4 80.0-100.0 fL Mean Corpuscular Hemoglobin 31.9 31.7 28.0-32.0 pg Mean Corpuscular Hemoglobin Concent 34.0 33.5 32.0-36.0 g/dL Red Cell Distribution Width 15.4 H 15.3 H 11.8-14.3 % Platelet Count 195 229 140-450 10^3/uL Mean Platelet Volume 7.7 7.7 6.9-10.8 fL Neutrophils (%) (Auto) 85.7 H 85.7 H 37.0-80.0 % Lymphocytes (%) (Auto) 7.9 L 8.8 L 10.0-50.0 % Monocytes (%) (Auto) 5.4 4.0 0.0-12.0 % Eosinophils (%) (Auto) 0.6 1.1 0.0-7.0 % Basophils (%) (Auto) 0.4 0.4 0.0-2.0 % Neutrophils # (Auto) 11.3 H 12.5 H 1.6-8.6 10 ^3/uL Lymphocytes # (Auto) 1.0 1.3 0.4-5.4 10 ^3/uL Monocytes # (Auto) 0.7 0.6 0-1.3 10 ^3/uL Eosinophils # (Auto) 0.1 0.2 0-0.8 10 ^3/uL Basophils # (Auto) 0.1 0.1 0-0.2 10 ^3/uL Nucleated Red Blood Cells 0.0 0.0 % Sodium Level 138 140 136-145 mmol/L Potassium Level 4.5 4.0 3.5-5.1 mmol/L Chloride Level 106 107 98-107 mmol/L Carbon Dioxide Level 24 25 20-31 mmol/L Anion Gap 8 8 5-15 Blood Urea Nitrogen 33 H 30 H 9-23 mg/dL Creatinine 2.94 #H 1.82 H 0.550-1.02 mg/dL Glomerular Filtration Rate Calc 16 28 >90 mL/min BUN/Creatinine Ratio 11.2 16.5 10.0-20.0 Serum Glucose 109 H 127 H 74-106 mg/dL Calcium Level 8.7 9.3 8.7-10.4 mg/dL Total Bilirubin 0.5 0.6 0.2-1.0 mg/dL Aspartate Amino Transferase (AST) 19 18 13-40 U/L Alanine Aminotransferase (ALT) 18 20 7-40 U/L Alkaline Phosphatase 64 65 46-116 U/L Total Protein 5.5 L 6.2 5.7-8.2 g/dL Albumin 3.5 4.1 3.2-4.8 g/dL Troponin I High Sensitivity 5 5 </=34 ng/L Lactic Acid Level 1.1 0.4-2.0 mmol/L B-Type Natriuretic Peptide 265.53 0-100 pg/mL Lipase 43 12-53 U/L Urine Color Light-brown Yellow Urine Clarity Ex.turbid Clear Urine pH 5.5 5.0-9.0 Urine Specific [place] 1.012 1.001-1.035 Urine Protein 1+ H Negative Urine Ketones Negative Negative Urine Blood 3+ H Negative /uL Urine Nitrite 2+ H Negative Urine Bilirubin Negative Negative Urine Urobilinogen Normal Negative mg/dL Urine Leukocyte Esterase 3+ Negative /uL Urine RBC 411 0 - 4 /hpf Urine WBC Clumps Present None Seen /hpf Urine Microscopic WBC 1566 H 0-5 /HPF Urine Squamous Epithelial Cells Few <5 /hpf Urine Bacteria Few H None Seen /hpf Urine Glucose Normal Normal mg/dL Assessment IMP: 1) Hemodynamically mediated RADHA/VMN 2) CKD stage IIIb - baseline creatinine to this specifications writer 3) s/p bladder sling procedure 4) urinary tract infection REC: - IV fluid hydration - we will check urine sodium, serial chemistry panels - urology evaluation/ follow-up - we will continue to follow closely with you. - discussed plan of care from Nephrology perspective of patient's daughter. Thank you for the consultation. Plan discussed with: Daughter SANDRO MAS MD Aug 28, 2024 11:10
[2024-08-28] MEDS: SODIUM CHLORIDE 0.9% 1,000 ML IV ONE (11:15)
--- NOTE | 2024-08-28 11:50 | DVHINCON2 ---
Date of service: Aug 28, 2024 Referring Physician Hospitalist Reason for Consultation post op pain History of Present Illness History Source: Patient, RN Notes, MD Notes, Old Records Exam Limitations: No limitations HPI 79 yo female known to urology for stress incontinence. She had urethral bulking 03/2024 and midurethral sling 08/25/24. Vaginal packing was removed and pt was straight cathed with 675 mls output. Home Meds Active Scripts Ciprofloxacin Hydrochloride (Ciprofloxacin HCl) 500 Mg Tab, 500 MG PO Q12HR for 5 Days, #10 TAB Prov:BARBARA BUSTOS RESIDENT 11/20/23 Reported Medications Cholecalciferol (VITAMIN D3) 2,000 Unit Tab, 1 TAB PO DAILY, #30 TAB 5 Refills 11/18/23 Folic Acid (Folic Acid) 1 Mg Tab, 100 MCG PO DAILY for 30 Days, MG 11/18/23 Bumetanide (Bumetanide) 2 Mg Tab, 1 TAB PO DAILY, #30 TAB 5 Refills 11/18/23 Levothyroxine Sodium (Levothyroxine Sodium) 100 Mcg Tab, 100 MCG PO DAILY, TAB 11/18/23 Methotrexate (Methotrexate Sodium) 2.5 Mg Tab, 2.5 MG PO QWEEKLY, TAB 11/18/23 Metoprolol Succinate (Metoprolol Succinate Er) 25 Mg Tab, 0.5 TAB PO DAILY, #30 TAB 5 Refills 11/18/23 Discontinued Reported Medications Alprazolam (Alprazolam) 0.25 Mg Tab, 1 TAB PO BID, #60 TAB 11/18/23 Past Medical History Patient Family History: Diabetes mellitus G8 MOTHER G8 FATHER FH: thyroid disease High cholesterol G8 MOTHER G8 FATHER Hypertension G8 MOTHER G8 FATHER Smoker: No Hx (Negative) Alocohol: None Drugs: None Domestic Violence: Neg Review of Systems Gastrointestinal: Abdominal Pain Genitourinary: Retention H&P Exam Vital Signs Vital Signs Date Time Temp Pulse Resp B/P (MAP) Pulse Ox O2 Delivery O2 Flow Rate FiO2 08/28/24 09:41 73 109/49 08/28/24 09:00 99.1 20 96 99.1 08/28/24 08:00 Room Air* 0 21 General Appeara: Well developed, Well nourished, Normal Appearance Pulmonary/Respiratory: Normal inspection, Normal breath sounds, Chest non- tender, Lungs clear Cardiovascular/Chest: Normal inspection, Regular rate, Normal Rhythm Neuro/Mental St: Alert, Oriented Appearance: Appropriate appearance, Appropriate insight Eye contact/ Speech: Cooperative, Good eye contact, Normal speech Skin Exam: Normal inspection, Normal color, Warm/dry Labs/Xrays [facility] [id number] [place] [id number] Ph: [phone] DIAGNOSTIC IMAGING Diagnostic Imaging Report : [id number] Signed PATIENT: RACHEL MURPHYT: [id number] UNIT: [id number] : 1945 LOC: ER ROOM / BED: / AGE / SEX: 79 / F ADM STATUS: REG ER SERVICE 1229 ORDERING PHYSICIAN: JOSE LUIS EDWARDS DO PROCEDURE(s): ABPL - CT AB PEL WO CON-NO ORAL OR IV REASON: ABD PAIN ORDER NUMBER(s): [id number], ACCESSION NUMBER(s): [id number] Exam: CT CT AB PEL WO CON-NO ORAL OR IV History: ABD PAIN Comparison Study: CT CT AB PEL WO CON-NO ORAL OR IV on DOS: 11/18/23 TECHNIQUE: Multidetector CT of the abdomen and pelvis was performed from lung bases to pubic symphysis. Imaging was performed without IV contrast. Axial, coronal, and sagittal multiplanar reformats were obtained from the axial data set by the technologist. RADIATION DOSE: DLP 958.65 mGy.cm; CTDI vol 18.94 mGy. Findings: Lungs: The lung bases are clear. Heart: Cardiomegaly. No pericardial effusion. Liver: Unremarkable. Gallbladder: Cholecystectomy versus contracted gallbladder. Spleen: Unremarkable Pancreas: Unremarkable Adrenals: Unremarkable Kidneys: Mildly hyperdense lesions in the left kidney. GI tract: Small to moderate hiatal hernia. : Calcification versus urethral stent. Vasculature: Mild aortoiliac atherosclerosis. Lymphadenopathy: Absent Peritoneum: No ascites Musculoskeletal: Mild multilevel degenerative changes of the thoracolumbar spine. Grade 1 anterolisthesis of L4 on L5. Soft tissues: Unremarkable Impression: 1. No acute abdominopelvic abnormalities. 2. [id number] hiatal hernia. 3. Urethral calcification versus stent. 4. Cardiomegaly. ATED BY: KRISTINE MYERS DO DICTATED DATE/TIME: 08/27/241316 SIGNED BY: KRISTINE MYERS DO SIGNED DATE/TIME: 08/27/241316 CC: Labs Test 08/28/24 06:35 08/27/24 13:50 08/27/24 12:27 08/27/24 12:00 Range/Units White Blood Count 13.2 H 4.4-10.8 10^3/uL Red Blood Count 2.62 L 4.0-5.20 10^6/uL Hemoglobin 8.4 L 12.2-16.2 g/dL Hematocrit 24.6 #L 36.0-46.0 % Mean Corpuscular Volume 93.9 80.0-100.0 fL Mean Corpuscular Hemoglobin 31.9 28.0-32.0 pg Mean Corpuscular Hemoglobin Concent 34.0 32.0-36.0 g/dL Red Cell Distribution Width 15.4 H 11.8-14.3 % Platelet Count 195 140-450 10^3/uL Mean Platelet Volume 7.7 6.9-10.8 fL Neutrophils (%) (Auto) 85.7 H 37.0-80.0 % Lymphocytes (%) (Auto) 7.9 L 10.0-50.0 % Monocytes (%) (Auto) 5.4 0.0-12.0 % Eosinophils (%) (Auto) 0.6 0.0-7.0 % Basophils (%) (Auto) 0.4 0.0-2.0 % Neutrophils # (Auto) 11.3 H 1.6-8.6 10 ^3/uL Lymphocytes # (Auto) 1.0 0.4-5.4 10 ^3/uL Monocytes # (Auto) 0.7 0-1.3 10 ^3/uL Eosinophils # (Auto) 0.1 0-0.8 10 ^3/uL Basophils # (Auto) 0.1 0-0.2 10 ^3/uL Nucleated Red Blood Cells 0.0 % Sodium Level 138 136-145 mmol/L Potassium Level 4.5 3.5-5.1 mmol/L Chloride Level 106 98-107 mmol/L Carbon Dioxide Level 24 20-31 mmol/L Anion Gap 8 5-15 Blood Urea Nitrogen 33 H 9-23 mg/dL Creatinine 2.94 #H 0.550-1.02 mg/dL Glomerular Filtration Rate Calc 16 >90 mL/min BUN/Creatinine Ratio 11.2 10.0-20.0 Serum Glucose 109 H 74-106 mg/dL Calcium Level 8.7 8.7-10.4 mg/dL Total Bilirubin 0.5 0.2-1.0 mg/dL Aspartate Amino Transferase (AST) 19 13-40 U/L Alanine Aminotransferase (ALT) 18 7-40 U/L Alkaline Phosphatase 64 46-116 U/L Total Protein 5.5 L 5.7-8.2 g/dL Albumin 3.5 3.2-4.8 g/dL Troponin I High Sensitivity 5 </=34 ng/L Lactic Acid Level 1.1 0.4-2.0 mmol/L B-Type Natriuretic Peptide 265.53 0-100 pg/mL Lipase 43 12-53 U/L Urine Color Light-brown Yellow Urine Clarity Ex.turbid Clear Urine pH 5.5 5.0-9.0 Urine Specific [place] 1.012 1.001-1.035 Urine Protein 1+ H Negative Urine Ketones Negative Negative Urine Blood 3+ H Negative /uL Urine Nitrite 2+ H Negative Urine Bilirubin Negative Negative Urine Urobilinogen Normal Negative mg/dL Urine Leukocyte Esterase 3+ Negative /uL Urine RBC 411 0 - 4 /hpf Urine WBC Clumps Present None Seen /hpf Urine Microscopic WBC 1566 H 0-5 /HPF Urine Squamous Epithelial Cells Few <5 /hpf Urine Bacteria Few H None Seen /hpf Urine Glucose Normal Normal mg/dL Assessment/Plan Problem List: (1) Retention of urine (2) Hydronephrosis (3) RADHA (acute kidney injury) (4) Postoperative pain Plan d/c with batista pain meds prn monitor renal function encourage ambulation f/u with Dr. Christopher on for voiding trial Plan discussed with: Patient, Other SHERIF LONDON NP Aug 28, 2024 11:50
--- NOTE | 2024-08-28 12:42 | DVHPN2 ---
Reviewed: Care Plan, H&P, Labs, Medications, Previous Orders, Radiology Changes from previous H/P or p: No Changes Objective Vitals Vital Signs Date Time Temp Pulse Resp B/P (MAP) Pulse Ox O2 Delivery O2 Flow Rate FiO2 08/28/24 09:41 73 109/49 08/28/24 09:00 99.1 20 96 99.1 08/28/24 08:00 Room Air* 0 21 Intake/Output Intake and Output 08/28/24 07:00 Intake Total 950 ml Output Total 200 ml Balance 750 ml Intake Oral 300 ml IV Total 650 ml Output Urine Total 200 ml Medications Current Medications Medications Dose Ordered Sig/Sonia Route Start Time Stop Time Status Last Admin Dose Admin Ceftriaxone Sodium 50 ml @ 100 mls/hr DAILY IV 08/27/24 16:15 08/28/24 09:40 100 MLS/HR Alprazolam 0.25 mg BID PO 08/27/24 22:00 Levothyroxine Sodium 100 mcg DAILY@0600 PO 08/28/24 06:00 08/28/24 06:43 100 MCG Methotrexate 2.5 mg QWEEKLY PO 08/27/24 16:15 Bumetanide 2 mg DAILY PO 08/28/24 10:00 08/28/24 09:41 2 MG Cholecalciferol 2,000 unit DAILY PO 08/28/24 10:00 08/28/24 09:42 2,000 UNIT Patient Own Medication 100 mcg DAILY PO 08/28/24 10:00 Metoprolol Succinate 25 mg DAILY PO 08/28/24 10:00 08/28/24 09:41 25 MG Sodium Chloride 10 ml Q8HR IV 08/27/24 22:00 08/28/24 06:44 10 ML Docusate Sodium 100 mg BIDPRN PRN PO 08/27/24 18:00 Acetaminophen 650 mg Q6HP PRN PO 08/27/24 18:00 Acetaminophen/ Hydrocodone Bitart 1 tab Q4HP PRN PO 08/27/24 18:00 08/28/24 09:43 1 TAB Ondansetron HCl 4 mg Q4HP PRN IV 08/27/24 18:00 08/27/24 20:41 4 MG Morphine Sulfate 2 mg Q4HPRN PRN IV 08/27/24 20:15 08/27/24 20:41 2 MG Laboratory Results Laboratory Tests 08/28/24 06:35 Chemistry Test 08/28/24 06:35 Albumin 3.5 g/dL (3.2-4.8) Calcium Level 8.7 mg/dL (8.7-10.4) Total Protein 5.5 g/dL (5.7-8.2) L LFT Test 08/28/24 06:35 Alanine Aminotransferase (ALT) 18 U/L (7-40) Alkaline Phosphatase 64 U/L (46-116) Aspartate Amino Transferase (AST) 19 U/L (13-40) Total Bilirubin 0.5 mg/dL (0.2-1.0) Urinalysis Test 08/27/24 12:00 Urine Color Light-brown (Yellow) Urine Clarity Ex.turbid (Clear) Urine pH 5.5 (5.0-9.0) Urine Specific [place] 1.012 (1.001-1.035) Urine Protein 1+ (Negative) H Urine Ketones Negative (Negative) Urine Blood 3+ /uL (Negative) H Urine Nitrite 2+ (Negative) H Urine Bilirubin Negative (Negative) Urine Urobilinogen Normal mg/dL (Negative) Urine Leukocyte Esterase 3+ /uL (Negative) Urine RBC 411 /hpf (0 - 4) Urine WBC Clumps Present /hpf (None Seen) Urine Microscopic WBC 1566 /HPF (0-5) H Urine Squamous Epithelial Cells Few /hpf (<5) Urine Bacteria Few /hpf (None Seen) H Urine Creatinine Pending Urine Sodium Pending Urine Glucose Normal mg/dL (Normal) Labs and/or images reviewed: Labs reviewed by me, Image(s) reviewed by me Assessment/Plan Assessment/Plan Acute postop urinary retention: Urology consult appreciated Sepsis secondary to urinary tract infection: Blood cultures urine cultures Rocephin Sling operation by Urology Dr. Christopher two days back Hypotension Hypothyroidism Arthritis Acute kidney injury: Nephrology consult appreciated Daughter at the bedside Plan discussed with: Patient Date of Service: Aug 28, 2024 Billing Provider: ERMA BARRETT MD Common Visit Codes: 97761-[id number] INP/OBS CARE(HIGH) ERMA BARRETT MD Aug 28, 2024 12:42
[2024-08-28 13:00] VITALS: BP 96/54; PULSE 73; RESP 18; TEMP 98.2; O2SAT 99
[2024-08-28 17:00] VITALS: BP 99/45; PULSE 74; RESP 14; TEMP 98.1; O2SAT 99
[2024-08-28 21:00] VITALS: BP 107/48; PULSE 81; RESP 18; TEMP 98; O2SAT 100
[2024-08-29] VITALS (7 sets, daily range): BP systolic 90–107; BP diastolic 41–49; PULSE 58–72; RESP 16–18; TEMP 98–98.3; O2SAT 97–99
[2024-08-29 06:28] LABS: Basophils # (auto) 0 10 ^3/uL (0-0.2); Basophils % (auto) 0.2 % (0.0-2.0); Eosinophils # (auto) 0.4 10 ^3/uL (0-0.8); Eosinophils % (auto) 3.6 % (0.0-7.0); Hematocrit 23.3 % (36.0-46.0); Hemoglobin 8.1 g/dL (12.2-16.2); Lymphocytes # (auto) 1.1 10 ^3/uL (0.4-5.4); Lymphocytes % (auto) 10.9 % (10.0-50.0); Mean Corpuscular Hemoglobin 32.7 pg (28.0-32.0); Mean Corpuscular Hgb Conc. 34.7 g/dL (32.0-36.0); Mean Corpuscular Volume 94.1 fL (80.0-100.0); Monocytes # (auto) 0.6 10 ^3/uL (0-1.3); Monocytes % (auto) 5.9 % (0.0-12.0); Neutrophils % (auto) 79.4 % (37.0-80.0); Platelet Count (auto) 178 10^3/uL (140-450); Red Blood Cells 2.48 10^6/uL (4.0-5.20); Red Cell Distribution Width 15.3 % (11.8-14.3); White Blood Cell 10.1 10^3/uL (4.4-10.8)
[2024-08-29 06:40] LABS: Alanine Aminotransferase 16 U/L (7-40); Albumin 3.3 g/dL (3.2-4.8); Alkaline Phosphatase 67 U/L (46-116); Anion Gap 10 (5-15); Aspartate Aminotransferase 18 U/L (13-40); BUN/Creatinine Ratio 11.3 (10.0-20.0); Carbon Dioxide 23 mmol/L (20-31); Glucose 95 mg/dL (74-106); Potassium 3.5 mmol/L (3.5-5.1); Sodium 142 mmol/L (136-145)
[2024-08-29 06:41] LABS: Bilirubin, Total 0.3 mg/dL (0.2-1.0)
[2024-08-29 06:42] LABS: Blood Urea Nitrogen 29 mg/dL (9-23); Chloride 109 mmol/L (98-107); Total Protein 5.4 g/dL (5.7-8.2)
[2024-08-29] MEDS: SODIUM CHLORIDE 0.9% 500 ML IV ONE (06:53)
--- NOTE | 2024-08-29 10:36 | DVHPNRES ---
Progress Note Date Seen: Aug 29, 2024 Resident Creating Document: ERIKA SEXTON RESIDENT Medical Necessity Reason Pt with a Central, PICC or Fol: Yes The following are medically ne: Batista Catheter Reason for batista catheter: Strict I&O Subjective Patient reports: No new complaints Review of Systems: HEENT:Normal, CVS:Normal, RESPIRATORY:Normal, GI:Abnormal (pain abdomen adn back pain), :Abnormal (foleys), MSK:Normal, NEURO:Normal Objective vital signs Vital Sign Date Time Temp Pulse Resp B/P (MAP) Pulse Ox O2 Delivery O2 Flow Rate FiO2 08/29/24 10:19 62 91/42 08/29/24 08:00 16 97 Room Air* 0 21 08/29/24 05:00 98.3 98.3 Total Intake and Output 08/28/24 08/28/24 08/29/24 15:00 23:00 07:00 Intake Total 230 ml 1440 ml 350 ml Output Total 300 ml 2450 ml Balance 230 ml 1140 ml -2100 ml medications Current Medications Medications Dose Ordered Sig/Sonia Route Start Time Stop Time Status Last Admin Dose Admin Ceftriaxone Sodium 50 ml @ 100 mls/hr DAILY IV 08/27/24 16:15 08/29/24 10:12 100 MLS/HR Alprazolam 0.25 mg BID PO 08/27/24 22:00 Levothyroxine Sodium 100 mcg DAILY@0600 PO 08/28/24 06:00 08/29/24 05:50 100 MCG Methotrexate 2.5 mg QWEEKLY PO 08/27/24 16:15 Bumetanide 2 mg DAILY PO 08/28/24 10:00 08/29/24 10:13 2 MG Cholecalciferol 2,000 unit DAILY PO 08/28/24 10:00 08/29/24 10:13 2,000 UNIT Patient Own Medication 100 mcg DAILY PO 08/28/24 10:00 Metoprolol Succinate 25 mg DAILY PO 08/28/24 10:00 08/29/24 10:19 25 MG Sodium Chloride 10 ml Q8HR IV 08/27/24 22:00 08/29/24 05:50 10 ML Docusate Sodium 100 mg BIDPRN PRN PO 08/27/24 18:00 Acetaminophen 650 mg Q6HP PRN PO 08/27/24 18:00 Acetaminophen/ Hydrocodone Bitart 1 tab Q4HP PRN PO 08/27/24 18:00 08/29/24 05:27 1 TAB Ondansetron HCl 4 mg Q4HP PRN IV 08/27/24 18:00 08/27/24 20:41 4 MG Morphine Sulfate 2 mg Q4HPRN PRN IV 08/27/24 20:15 08/27/24 20:41 2 MG Examination: GENERAL:Normal, HEENT:Normal, NECK:Normal, LUNGS:Normal, CVS:Normal, ABDOMEN:Abnormal (pain continues, suprapubic, ), MSK:Normal, NEURO:Normal, :Abnormal (on foleys, U/O color and output satisfactory. ) laboratory and microbiology Laboratory Tests 08/29/24 04:41 Test 08/29/24 04:41 Range/Units Serum Glucose 95 74-106 mg/dL Microbiology Date/Time Source Procedure Growth Status 08/27/24 23:15 Nose MRSA Screen - Final Complete 08/27/24 17:08 Blood Blood Culture - Preliminary NO GROWTH AFTER 24 HOURS OF INCUBATION. Resulted 08/27/24 12:00 Voided Urine Urine Culture - Preliminary Resulted Labs and/or images reviewed: Labs reviewed by me, Image(s) reviewed by me Problem List/Assessment/Plan Problem List/Assessment/Plan Mrs. Robert, a 79-year-old , exclusively [place]ian speaking female with a history of hypertension, arthritis, and hypothyroidism, cholecystectomy, sling operation with vaginal packing on 08/26 presented with suprapubic discomfort, urinary retention, following a recent urologic procedure as post operative pain. Her daughter provided most of the history, noting no recent fevers, chills, or gross hematuria. The consultation was requested due to uptrending serum creatinine levels, indicating acute kidney injury. She denies any use of cigarettes, alcohol, or drugs and has no known drug allergies. Assessment: # Acute postop urinary retention s/p foleys catheter placement on 08/28 # Hemodynamically mediated RADHA/VMN vs postrenal obstruction to rule out. # Baseline CKD stage IIIb likely # s/p bladder sling procedure by Dr. Christopher (Urology) # Sepsis secondary to urinary tract infection # urinary tract infection, likely gram -ve, cultures pending on Ceftriaxone iv. # Hiatal hernia Findings: #HnH and pletlets stable. Final cultures pending. #HDS, leukocytosis improved, afebrile, mild hypotensive. euvolemic #Cr. 1.82> 2.94>2.57 (baseline 0.91 ...11/20/23) #BUN:33>29 #urinalysis UTI on ceftriaxone, +ve nitritie, blood. Bcx and mrsa -ve #CT abdomen shows, Urethral calcification versus stent. #24 hour I/O: [id number]= (-730) Plan: #US Renal with bladder pending. #Urine cr, sodium, and glucose pending. #Continue antibiotics, #Rest of the treatment as per primary team, and urology. Will continue Batista catheter at discharge with Urology outpatient follow up 09/[address] Christopher for voiding trial. Thank you for the opportunity to follow up on your patient. In case of any question feel free to reach out to the Nephrology team. Discussed with Nephrology attending Dr. Avendaño. Addendum Patient seen and examined, plan discussed with resident. Agree with above, we will follow closely Patient is status post Batista catheter urinary retention DC Bumex NS IV as ordered for 1 L today Discussed with son-in-law bedside Plan discussed with: Patient, Other (primary team, RN) ERIKA SEXTON RESIDENT Aug 29, 2024 10:36 BIBIANA AVENDAÑO MD Aug 29, 2024 15:57
--- NOTE | 2024-08-29 12:45 | DVHPN2 ---
Reviewed: Care Plan, H&P, Labs, Medications, Previous Orders, Radiology Changes from previous H/P or p: No Changes Objective Vitals Vital Signs Date Time Temp Pulse Resp B/P (MAP) Pulse Ox O2 Delivery O2 Flow Rate FiO2 08/29/24 10:19 62 91/42 08/29/24 09:00 98.2 16 97 98.2 08/29/24 08:00 Room Air* 0 21 Intake/Output Intake and Output 08/29/24 07:00 Intake Total 2020 ml Output Total 2750 ml Balance -730 ml Intake Oral 970 ml IV Total 1050 ml Output Urine Total 2750 ml # Voids 1 Medications Current Medications Medications Dose Ordered Sig/Sonia Route Start Time Stop Time Status Last Admin Dose Admin Ceftriaxone Sodium 50 ml @ 100 mls/hr DAILY IV 08/27/24 16:15 08/29/24 10:12 100 MLS/HR Alprazolam 0.25 mg BID PO 08/27/24 22:00 Levothyroxine Sodium 100 mcg DAILY@0600 PO 08/28/24 06:00 08/29/24 05:50 100 MCG Methotrexate 2.5 mg QWEEKLY PO 08/27/24 16:15 Bumetanide 2 mg DAILY PO 08/28/24 10:00 08/29/24 10:13 2 MG Cholecalciferol 2,000 unit DAILY PO 08/28/24 10:00 08/29/24 10:13 2,000 UNIT Patient Own Medication 100 mcg DAILY PO 08/28/24 10:00 Metoprolol Succinate 25 mg DAILY PO 08/28/24 10:00 08/29/24 10:19 25 MG Sodium Chloride 10 ml Q8HR IV 08/27/24 22:00 08/29/24 05:50 10 ML Docusate Sodium 100 mg BIDPRN PRN PO 08/27/24 18:00 Acetaminophen 650 mg Q6HP PRN PO 08/27/24 18:00 Acetaminophen/ Hydrocodone Bitart 1 tab Q4HP PRN PO 08/27/24 18:00 08/29/24 05:27 1 TAB Ondansetron HCl 4 mg Q4HP PRN IV 08/27/24 18:00 08/27/24 20:41 4 MG Morphine Sulfate 2 mg Q4HPRN PRN IV 08/27/24 20:15 08/27/24 20:41 2 MG Laboratory Results Laboratory Tests 08/29/24 04:41 Chemistry Test 08/29/24 04:41 Albumin 3.3 g/dL (3.2-4.8) Calcium Level 9.0 mg/dL (8.7-10.4) Total Protein 5.4 g/dL (5.7-8.2) L LFT Test 08/29/24 04:41 Alanine Aminotransferase (ALT) 16 U/L (7-40) Alkaline Phosphatase 67 U/L (46-116) Aspartate Amino Transferase (AST) 18 U/L (13-40) Total Bilirubin 0.3 mg/dL (0.2-1.0) Urinalysis Test 08/27/24 12:00 Urine Color Light-brown (Yellow) Urine Clarity Ex.turbid (Clear) Urine pH 5.5 (5.0-9.0) Urine Specific [place] 1.012 (1.001-1.035) Urine Protein 1+ (Negative) H Urine Ketones Negative (Negative) Urine Blood 3+ /uL (Negative) H Urine Nitrite 2+ (Negative) H Urine Bilirubin Negative (Negative) Urine Urobilinogen Normal mg/dL (Negative) Urine Leukocyte Esterase 3+ /uL (Negative) Urine RBC 411 /hpf (0 - 4) Urine WBC Clumps Present /hpf (None Seen) Urine Microscopic WBC 1566 /HPF (0-5) H Urine Squamous Epithelial Cells Few /hpf (<5) Urine Bacteria Few /hpf (None Seen) H Urine Creatinine Pending Urine Sodium Pending Urine Glucose Normal mg/dL (Normal) Microbiology Microbiology Date/Time Source Procedure Growth Status 08/27/24 23:15 Nose MRSA Screen - Final Complete 08/27/24 17:08 Blood Blood Culture - Preliminary NO GROWTH AFTER 24 HOURS OF INCUBATION. Resulted 08/27/24 12:00 Voided Urine Urine Culture - Preliminary Resulted Labs and/or images reviewed: Labs reviewed by me, Image(s) reviewed by me Assessment/Plan Assessment/Plan Acute postop urinary retention: Urology consult appreciated Sepsis secondary to urinary tract infection: Blood cultures negative, urine cultures mixed, continue Rocephin Sling operation by Urology Dr. Christopher two days back Hypotension Hypothyroidism Arthritis Acute kidney injury: Nephrology consult appreciated Daughter at the bedside Urology cleared for discharge Final urine cultures still pending, son-in-law at bedside and does not want patient to be discharged until final urine culture result Plan discussed with: Patient Date of Service: Aug 29, 2024 Billing Provider: ERMA BARRETT MD Common Visit Codes: [id number] INP/OBS CARE(HIGH) ERMA BARRETT MD Aug 29, 2024 12:45
--- NOTE | 2024-08-29 14:19 | DVH ---
INDICATION: RADHA with obstruction TECHNIQUE: Multiple real-time sonographic images of the kidneys and bladder were obtained. COMPARISON: US KIDNEY on DOS: 11/18/23 FINDINGS: RIGHT kidney measures 10.5 cm in length. Mild hydronephrosis. LEFT kidney measures 9.9 cm in length. Left renal cysts are present measuring up to 2.9 cm in the low er pole. No hydronephrosis. Greene catheter in the urinary bladder. IMPRESSION: Mild right hydronephrosis.
[2024-08-29] MEDS: SODIUM CHLORIDE 0.9% 1,000 ML IV ONE (18:12)
[2024-08-29] MEDS: FOLIC ACID 1 MG TAB PO ONE (20:04)
[2024-08-30 05:00] VITALS: BP 101/57; PULSE 63; RESP 17; TEMP 97.9; O2SAT 94
[2024-08-30 06:35] LABS: Alanine Aminotransferase 21 U/L (7-40); Alkaline Phosphatase 72 U/L (46-116); Anion Gap 9 (5-15); Aspartate Aminotransferase 19 U/L (13-40); BUN/Creatinine Ratio 10.8 (10.0-20.0); Blood Urea Nitrogen 20 mg/dL (9-23); Carbon Dioxide 26 mmol/L (20-31); Glucose 88 mg/dL (74-106); Sodium 144 mmol/L (136-145)
[2024-08-30 06:36] LABS: Albumin 3.3 g/dL (3.2-4.8)
[2024-08-30 06:39] LABS: Bilirubin, Total 0.3 mg/dL (0.2-1.0); Calcium 8.5 mg/dL (8.7-10.4); Chloride 109 mmol/L (98-107); Potassium 3.3 mmol/L (3.5-5.1); Total Protein 5.4 g/dL (5.7-8.2)
[2024-08-30 07:58] LABS: Basophils # (auto) 0 10 ^3/uL (0-0.2); Basophils % (auto) 0.4 % (0.0-2.0); Eosinophils # (auto) 0.4 10 ^3/uL (0-0.8); Mean Corpuscular Volume 94.9 fL (80.0-100.0); Monocytes # (auto) 0.6 10 ^3/uL (0-1.3)
[2024-08-30 08:01] LABS: Eosinophils % (auto) 5.3 % (0.0-7.0); Hemoglobin 7.8 g/dL (12.2-16.2); Lymphocytes % (auto) 13.3 % (10.0-50.0); Mean Corpuscular Hemoglobin 32.3 pg (28.0-32.0); Monocytes % (auto) 7.6 % (0.0-12.0); Neutrophils # (auto) 5.7 10 ^3/uL (1.6-8.6); Neutrophils % (auto) 73.4 % (37.0-80.0); Platelet Count (auto) 181 10^3/uL (140-450); Red Blood Cells 2.43 10^6/uL (4.0-5.20); Red Cell Distribution Width 15.2 % (11.8-14.3); White Blood Cell 7.8 10^3/uL (4.4-10.8)
[2024-08-30 08:10] VITALS: PULSE 68; RESP 16; O2SAT 97
[2024-08-30 09:00] VITALS: BP 99/47; PULSE 68; RESP 16; TEMP 98; O2SAT 97
[2024-08-30] MEDS: FOLIC ACID 1 MG TAB PO SCH (09:33)
[2024-08-30] MEDS ORDERED: CIPR-173 PO (11:35)
--- NOTE | 2024-08-30 11:37 | DVHPN2 ---
Reviewed: Care Plan, H&P, Labs, Medications, Previous Orders, Radiology Changes from previous H/P or p: No Changes Objective Vitals Vital Signs Date Time Temp Pulse Resp B/P (MAP) Pulse Ox O2 Delivery O2 Flow Rate FiO2 08/30/24 09:33 68 99/47 08/30/24 09:00 98.0 16 97 98.0 08/30/24 08:10 Room Air* 0 21 Intake/Output Intake and Output 08/30/24 07:00 Intake Total 1650 ml Output Total 3950 ml Balance -2300 ml Intake Oral 950 ml IV Total 700 ml Output Urine Total 3950 ml Medications Current Medications Medications Dose Ordered Sig/Sonia Route Start Time Stop Time Status Last Admin Dose Admin Ceftriaxone Sodium 50 ml @ 100 mls/hr DAILY IV 08/27/24 16:15 08/30/24 09:32 100 MLS/HR Alprazolam 0.25 mg BID PO 08/27/24 22:00 Levothyroxine Sodium 100 mcg DAILY@0600 PO 08/28/24 06:00 08/30/24 05:26 100 MCG Methotrexate 2.5 mg QWEEKLY PO 08/27/24 16:15 Cholecalciferol 2,000 unit DAILY PO 08/28/24 10:00 08/30/24 09:33 2,000 UNIT Metoprolol Succinate 25 mg DAILY PO 08/28/24 10:00 08/30/24 09:33 25 MG Sodium Chloride 10 ml Q8HR IV 08/27/24 22:00 08/30/24 05:26 10 ML Docusate Sodium 100 mg BIDPRN PRN PO 08/27/24 18:00 Acetaminophen 650 mg Q6HP PRN PO 08/27/24 18:00 Acetaminophen/ Hydrocodone Bitart 1 tab Q4HP PRN PO 08/27/24 18:00 08/30/24 06:23 1 TAB Ondansetron HCl 4 mg Q4HP PRN IV 08/27/24 18:00 08/27/24 20:41 4 MG Morphine Sulfate 2 mg Q4HPRN PRN IV 08/27/24 20:15 08/27/24 20:41 2 MG Folic Acid 1 mg DAILY PO 08/30/24 10:00 08/30/24 09:33 1 MG Laboratory Results Laboratory Tests 08/30/24 04:16 08/30/24 07:39 Chemistry Test 08/30/24 04:16 Albumin 3.3 g/dL (3.2-4.8) Calcium Level 8.5 mg/dL (8.7-10.4) L Total Protein 5.4 g/dL (5.7-8.2) L LFT Test 08/30/24 04:16 Alanine Aminotransferase (ALT) 21 U/L (7-40) Alkaline Phosphatase 72 U/L (46-116) Aspartate Amino Transferase (AST) 19 U/L (13-40) Total Bilirubin 0.3 mg/dL (0.2-1.0) Urinalysis Test 08/27/24 12:00 Urine Color Light-brown (Yellow) Urine Clarity Ex.turbid (Clear) Urine pH 5.5 (5.0-9.0) Urine Specific [place] 1.012 (1.001-1.035) Urine Protein 1+ (Negative) H Urine Ketones Negative (Negative) Urine Blood 3+ /uL (Negative) H Urine Nitrite 2+ (Negative) H Urine Bilirubin Negative (Negative) Urine Urobilinogen Normal mg/dL (Negative) Urine Leukocyte Esterase 3+ /uL (Negative) Urine RBC 411 /hpf (0 - 4) Urine WBC Clumps Present /hpf (None Seen) Urine Microscopic WBC 1566 /HPF (0-5) H Urine Squamous Epithelial Cells Few /hpf (<5) Urine Bacteria Few /hpf (None Seen) H Urine Glucose Normal mg/dL (Normal) Microbiology Microbiology Date/Time Source Procedure Growth Status 08/27/24 23:15 Nose MRSA Screen - Final Complete 08/27/24 17:08 Blood Blood Culture - Preliminary NO GROWTH AFTER 48 HOURS OF INCUBATION. Resulted 08/27/24 12:00 Voided Urine Urine Culture - Final Complete Labs and/or images reviewed: Labs reviewed by me, Image(s) reviewed by me Assessment/Plan Assessment/Plan Acute postop urinary retention: Urology consult appreciated Sepsis secondary to urinary tract infection: Blood cultures negative, urine cultures mixed, continue Rocephin Sling operation by Urology Dr. Christopher two days back Hypotension Hypothyroidism Arthritis Acute kidney injury: Nephrology consult appreciated Urine Cultures contaminated Patient feels better afebrile stable vital signs will discharged home on Cipro Urology cleared for discharge Plan discussed with: Patient Date of Service: Aug 30, 2024 Billing Provider: ERMA BARRETT MD Common Visit Codes: [id number] INP/OBS CARE(HIGH) ERMA BARRETT MD Aug 30, 2024 11:37
--- NOTE | 2024-08-30 11:42 | DVHDS2 ---
Discharge Summary Date of Admission Aug 27, 2024 at 17:49 Date of Discharge: Aug 30, 2024 Admitting Diagnosis Urinary retention Wounds: None Labs/Diagnostic Data: Laboratory Results Test 08/30/24 07:39 08/30/24 04:16 08/27/24 13:50 08/27/24 12:27 White Blood Count 7.8 10^3/uL (4.4-10.8) Red Blood Count 2.43 10^6/uL (4.0-5.20) Hemoglobin 7.8 g/dL (12.2-16.2) Hematocrit 23.0 % (36.0-46.0) Mean Corpuscular Volume 94.9 fL (80.0-100.0) Mean Corpuscular Hemoglobin 32.3 pg (28.0-32.0) Mean Corpuscular Hemoglobin Concent 34.0 g/dL (32.0-36.0) Red Cell Distribution Width 15.2 % (11.8-14.3) Platelet Count 181 10^3/uL (140-450) Mean Platelet Volume 7.6 fL (6.9-10.8) Neutrophils (%) (Auto) 73.4 % (37.0-80.0) Lymphocytes (%) (Auto) 13.3 % (10.0-50.0) Monocytes (%) (Auto) 7.6 % (0.0-12.0) Eosinophils (%) (Auto) 5.3 % (0.0-7.0) Basophils (%) (Auto) 0.4 % (0.0-2.0) Neutrophils # (Auto) 5.7 10 ^3/uL (1.6-8.6) Lymphocytes # (Auto) 1.0 10 ^3/uL (0.4-5.4) Monocytes # (Auto) 0.6 10 ^3/uL (0-1.3) Eosinophils # (Auto) 0.4 10 ^3/uL (0-0.8) Basophils # (Auto) 0 10 ^3/uL (0-0.2) Nucleated Red Blood Cells 0.0 % Sodium Level 144 mmol/L (136-145) Potassium Level 3.3 mmol/L (3.5-5.1) Chloride Level 109 mmol/L (98-107) Carbon Dioxide Level 26 mmol/L (20-31) Anion Gap 9 (5-15) Blood Urea Nitrogen 20 mg/dL (9-23) Creatinine 1.86 mg/dL (0.550-1.02) Glomerular Filtration Rate Calc 27 mL/min (>90) BUN/Creatinine Ratio 10.8 (10.0-20.0) Serum Glucose 88 mg/dL (74-106) Calcium Level 8.5 mg/dL (8.7-10.4) Total Bilirubin 0.3 mg/dL (0.2-1.0) Aspartate Amino Transferase (AST) 19 U/L (13-40) Alanine Aminotransferase (ALT) 21 U/L (7-40) Alkaline Phosphatase 72 U/L (46-116) Total Protein 5.4 g/dL (5.7-8.2) Albumin 3.3 g/dL (3.2-4.8) Troponin I High Sensitivity 5 ng/L (</=34) Lactic Acid Level 1.1 mmol/L (0.4-2.0) B-Type Natriuretic Peptide 265.53 pg/mL (0-100) Lipase 43 U/L (12-53) Test 08/27/24 12:00 Urine Color Light-brown (Yellow) Urine Clarity Ex.turbid (Clear) Urine pH 5.5 (5.0-9.0) Urine Specific [place] 1.012 (1.001-1.035) Urine Protein 1+ (Negative) Urine Ketones Negative (Negative) Urine Blood 3+ /uL (Negative) Urine Nitrite 2+ (Negative) Urine Bilirubin Negative (Negative) Urine Urobilinogen Normal mg/dL (Negative) Urine Leukocyte Esterase 3+ /uL (Negative) Urine RBC 411 /hpf (0 - 4) Urine WBC Clumps Present /hpf (None Seen) Urine Microscopic WBC 1566 /HPF (0-5) Urine Squamous Epithelial Cells Few /hpf (<5) Urine Bacteria Few /hpf (None Seen) Urine Glucose Normal mg/dL (Normal) Other Laboratory Tests 08/30/24 07:39 08/30/24 04:16 Brief Hx & Hospital Course: 79-year-old female with a history of hypertension hypothyroidism arthritis had sling operation for cystocele by Urology Dr. Christopher subsequently developed urinary retention two days afterwards and got admitted to the hospital. The patient had Greene inserted. Vaginal pack was removed. Blood cultures negative urine cultures were mixed patient treated with Rocephin. patient feels better afebrile stable vital signs and alert discharged home on Cipro for UTI Greene with leg bag she will follow up with Dr Christopher in 10 days Consults/Reason for consult Dr. Christopher Operations or Procedures None Condition at Discharge: Fair Final Diagnosis/Problems List Acute postop urinary retention: Urology consult appreciated Sepsis secondary to urinary tract infection: Blood cultures negative, urine cultures mixed, continue Rocephin Sling operation by Urology Dr. Christopher two days back Hypotension Hypothyroidism Arthritis Acute kidney injury: Nephrology consult appreciated Discharge Disposition: Home Discharge Instruct/Medications Diet: Regular Activity: Light activity Follow Up/Referral: Follow up with Urology Dr. Christopher in 10 days Medications: Cipro Transmitted to pharmacy 39 (Time taken for discharge summary 39 minutes) Discharge Statement: "Patient was advised to return to the ER or call 911 if any headaches, dizziness, shortness of breath, chest pain, abdominal pain, bleeding, fevers, or worsening of medical condition. Patient was counseled about treatment plan, medications, possible side effects, patientverbalized understanding. All questions were answered to the best of my ability. This discharge took greater then 30 minutes in planning, reviewing documentation, counseling the patient, and discussing with other team members." ASSESSMENT ASSESSMENT Hospital Course Uneventful Assessment Acute postop urinary retention: Urology consult appreciated Sepsis secondary to urinary tract infection: Blood cultures negative, urine cultures mixed, continue Rocephin Sling operation by Urology Dr. Christopher two days back Hypotension Hypothyroidism Arthritis Acute kidney injury: Nephrology consult appreciated Date of Service: Aug 30, 2024 Billing Provider: ERMA BARRETT MD Common Visit Codes: [id number] DISCH DAY >30min ERMA BARRETT MD Aug 30, 2024 11:42
[2024-08-30 13:00] VITALS: BP 103/47; PULSE 63; RESP 16; TEMP 98.6; O2SAT 92
[2024-08-30 13:02] VITALS: BP 103/47; PULSE 68; RESP 16; TEMP 36.7; O2SAT 92
--- NOTE | 2024-08-30 14:47 | DVHPNRES ---
Progress Note Date Seen: Aug 30, 2024 Resident Creating Document: ERIKA SEXTON RESIDENT Medical Necessity Reason Pt with a Central, PICC or Fol: Yes The following are medically ne: Batista Catheter Reason for batista catheter: Strict I&O Subjective Patient reports: Feels better Objective vital signs Vital Sign Date Time Temp Pulse Resp B/P (MAP) Pulse Ox O2 Delivery O2 Flow Rate FiO2 08/30/24 13:02 36.7 68 16 92 08/30/24 09:33 99/47 08/30/24 08:10 Room Air* 0 21 Total Intake and Output 08/29/24 08/29/24 08/30/24 15:00 23:00 07:00 Intake Total 500 ml 950 ml 200 ml Output Total 2550 ml 1400 ml Balance 500 ml -1600 ml -1200 ml medications Current Medications Medications Dose Ordered Sig/Sonia Route Start Time Stop Time Status Last Admin Dose Admin Ceftriaxone Sodium 50 ml @ 100 mls/hr DAILY IV 08/27/24 16:15 08/30/24 09:32 100 MLS/HR Alprazolam 0.25 mg BID PO 08/27/24 22:00 Levothyroxine Sodium 100 mcg DAILY@0600 PO 08/28/24 06:00 08/30/24 05:26 100 MCG Methotrexate 2.5 mg QWEEKLY PO 08/27/24 16:15 Cholecalciferol 2,000 unit DAILY PO 08/28/24 10:00 08/30/24 09:33 2,000 UNIT Metoprolol Succinate 25 mg DAILY PO 08/28/24 10:00 08/30/24 09:33 25 MG Sodium Chloride 10 ml Q8HR IV 08/27/24 22:00 08/30/24 14:02 10 ML Docusate Sodium 100 mg BIDPRN PRN PO 08/27/24 18:00 Acetaminophen 650 mg Q6HP PRN PO 08/27/24 18:00 Acetaminophen/ Hydrocodone Bitart 1 tab Q4HP PRN PO 08/27/24 18:00 08/30/24 06:23 1 TAB Ondansetron HCl 4 mg Q4HP PRN IV 08/27/24 18:00 08/27/24 20:41 4 MG Morphine Sulfate 2 mg Q4HPRN PRN IV 08/27/24 20:15 08/27/24 20:41 2 MG Folic Acid 1 mg DAILY PO 08/30/24 10:00 08/30/24 09:33 1 MG Examination HEENT:Normal, CVS:Normal, RESPIRATORY:Normal, GI:Normal (no tenderenss, guarding), :Abnormal (foleys), MSK:Normal, NEURO:Normal laboratory and microbiology Laboratory Tests 08/30/24 07:39 08/30/24 04:16 Test 08/30/24 04:16 Range/Units Serum Glucose 88 74-106 mg/dL Microbiology Date/Time Source Procedure Growth Status 08/27/24 23:15 Nose MRSA Screen - Final Complete 08/27/24 17:08 Blood Blood Culture - Preliminary NO GROWTH AFTER 48 HOURS OF INCUBATION. Resulted 08/27/24 12:00 Voided Urine Urine Culture - Final Complete Labs and/or images reviewed: Labs reviewed by me, Image(s) reviewed by me Problem List/Assessment/Plan Problem List/Assessment/Plan Mrs. Robert, a 79-year-old , exclusively Citizen Of [place] speaking female with a history of hypertension, arthritis, and hypothyroidism, cholecystectomy, sling operation with vaginal packing on 08/26 presented with suprapubic discomfort, urinary retention, following a recent urologic procedure as post operative pain. Her daughter provided most of the history, noting no recent fevers, chills, or gross hematuria. The consultation was requested due to uptrending serum creatinine levels, indicating acute kidney injury. S/p NS for 1 L 08/29 HnH and pletlets stable, HDS, leukocytosis improved, afebrile,euvolemic stable for outpatient follow up. Assessment: # Acute postop urinary retention s/p foleys catheter placement on 08/28 # Hemodynamically mediated RADHA/VMN vs postrenal obstruction to rule out. # Baseline CKD stage IIIb likely # Hypokalemia 3.3 # s/p bladder sling procedure by Dr. Christopher (Urology) # Sepsis secondary to urinary tract infection # urinary tract infection, likely gram -ve, cultures pending on Ceftriaxone iv. # Mild right hydronephrosis # Stable Hiatal hernia Findings: #Cr. 1.82> 2.94>2.57>1.86 (baseline 0.91 ...11/20/23) #BUN:33>29>20 #24 hour I/[id number]= (-2300) Plan: #Continue oral antibiotics for UTI, no need of further diuretics. #Continue Batista catheter at discharge with Urology outpatient follow up 09/[address] Christopher for voiding trial. #Rest of the treatment as per primary team, and urology. Ok to discharge from Nephrology perspective. Thank you for the opportunity to follow up on your patient. In case of any question feel free to reach out to the Nephrology team. Signing off. Discussed with Nephrology attending Dr. Avendaño. Addendum Patient seen and examined, plan discussed with resident. Agree with above, we will follow closely continue batista Plan discussed with: Patient, Other (primary team. RN) ERIKA SEXTON Aug 30, 2024 14:47 BIBIANA AVENDAÑO MD Aug 31, 2024 17:37
== END 2024-08-30 14:20 | disposition home health service (06) | DRG 871 ==
LOC: EEVIPCON 12:03 → ER 12:03 → EEVIPCON 17:49 → OVERFLOW 17:49 → WEST WING 22:25
PROVIDERS: ADMIT Family Medicine; ATTEND Family Medicine
DX: A41.50 Gram-negative sepsis, unspecified (principal); N17.0 Acute kidney failure with tubular necrosis; N13.6 Pyonephrosis; G89.18 Other acute postprocedural pain; N18.32 Chronic kidney disease, stage 3b; E03.9 Hypothyroidism, unspecified; I95.9 Hypotension, unspecified; K44.9 Diaphragmatic hernia without obstruction or gangrene; E86.0 Dehydration; E78.00 Pure hypercholesterolemia, unspecified; E11.22 Type 2 diabetes mellitus with diabetic chronic kidney disease; I13.10 Hypertensive heart and chronic kidney disease without heart failure, with stage 1 through stage 4 chronic kidney disease, or unspecified chronic kidney disease; Z87.891 Personal history of nicotine dependence; Z83.3 Family history of diabetes mellitus; Z82.49 Family history of ischemic heart disease and other diseases of the circulatory system; Z79.899 Other long term (current) drug therapy; Z90.49 Acquired absence of other specified parts of digestive tract
CPT/HCPCS: 36415; 74176; 76775; 80053; 81001; 83605; 83690; 83880; 84484; 85025; 87040; 87081; 87086; 96365; 96375; G0378; J2405; J2543